=== PATIENT | male | born 1955 | race Caucasian/White ===

== ENCOUNTER 2019-10-12 17:44 | Inpatient (IN) | payer OTHER ==
[~2019-10-12] VITALS: Ht 182.9 cm; Wt 117.0 kg
--- NOTE | 2019-10-12 18:05 | NUR ---
PT TIFFANIEPA FROM HOME FOR NAUSEA AND VOMITTING, +DIARRHEA, S/P CATARACT SX 12/5 C/O R FOOT PAIN ALSO PS 5/10. PT AAOX4, NO ACUTE DISTRESS NOTED, -SOB. PT CONNECTED TO THE MONITOR AND POX.
[2019-10-12 19:16] LABS: BASOPHILS # (AUTO) 0.2 /CMM (0.0-0.2); BASOPHILS % (AUTO) 0.7 % (0.0-2.0); HEMATOCRIT 41 % (39-51); HEMOGLOBIN 12.7 g/dL (13.5-17.5); LYMPHOCYTES # (AUTO) 0.7 /CMM (0.8-4.8); MEAN CORPUSCULAR HGB CONC 31 g/dl (31.0-36.0); MEAN CORPUSCULAR VOLUME 94 fL (80-96); MONOCYTES # (AUTO) 1.1 /CMM (0.1-1.30); MONOCYTES % (AUTO) 4.4 % (2.0-12.0); NEUTROPHILS # (AUTO) 22.7 /CMM (1.8-8.9); NEUTROPHILS % (AUTO) 91.9 % (43.0-81.0); PLATELET COUNT (AUTO) 179 /CMM (150-450); RED BLOOD CELL COUNT(AUTO) 4.33 MIL/uL (4.5-6.0); WHITE BLOOD COUNT (AUTO) 24.7 K/uL (4.3-11.0)
[2019-10-12 19:31] LABS: ALBUMIN 2.4 g/dL (3.4-5.0); BILIRUBIN,DIRECT 0.1 mg/dL (0.0-0.2); BILIRUBIN,TOTAL 0.4 mg/dL (0.2-1.0); CALCIUM, SERUM 8.8 mg/dL (8.5-10.1); CREATININE 2.2 mg/dL (0.6-1.3); POTASSIUM 4.2 mmol/L (3.5-5.1); TOTAL PROTEIN, SERUM 6.6 g/dL (6.4-8.2)
[2019-10-12] MEDS ORDERED: INSULIN REGULAR, HUMAN 100 UNIT in IV NS 0.9% 99 ML IV PRN ×4 (20:00→22:00)
[2019-10-12] MEDS ORDERED: POTASSIUM CL. PREMIX PERIPHER. 0 ML ONE (20:25)
[2019-10-12] MEDS ORDERED: IV NS W/20MEQ KCL 1L IV ONE ×2 (20:30)
[2019-10-12 21:01] LABS: APPEARANCE,URINE Clear (CLEAR); BILIRUBIN,URINE Negative (NEGATIVE); BLOOD, URINE Moderate Ery/uL (NEGATIVE); COLOR,URINE Yellow (YELLOW); KETONES,URINE Trace (NEGATIVE); LEUKOCYTE ESTERASE ,URINE Negative (NEGATIVE); NITRITE, URINE Negative (NEGATIVE); PH,URINE 5.5 (5.0-8.0); PROTEIN,URINE >=300 mg/dl (NEGATIVE); UGLUCOSE >=1000 mg/dL (NEGATIVE); UROBILINOGEN,URINE 0.2 EU/dL (0.2)
--- NOTE | 2019-10-12 21:01 | NUR ---
EPIC BOOK REPAIRER PAGED
--- NOTE | 2019-10-12 21:02 | NUR ---
CALLED FOR ICU BED
--- NOTE | 2019-10-12 21:04 | NUR ---
RECIEVED BED 256
[2019-10-12 21:17] LABS: BACTERIA,URINE Rare /HPF (None Seen); SQUAMOUS EPITHELIAL CELL,UR Few /HPF (None Seen); WBC,URINE 0-2 /HPF (0-3)
--- NOTE | 2019-10-12 21:55 | NUR ---
REPORT FIVEN TO SATISH JANE
[2019-10-12] MEDS ORDERED: IV NS 0.9% 1,000 ML IV SCH (21:56)
[2019-10-12] MEDS ORDERED: MAGNESIUM HYDROXIDE 30 ML UDC PO PRN (22:00)
[2019-10-12] MEDS ORDERED: Z GUARD REMEDY 2 OZ OINT TP PRN (22:00)
[2019-10-12] MEDS ORDERED: ACETAMINOPHEN 325 MG TABLET PO PRN (22:00)
[2019-10-12] MEDS ORDERED: MAG HYDROX/AL HYDROX/SIMETH 30 ML UDC PO PRN (22:00)
[2019-10-12] MEDS: ONDANSETRON HCL/PF 4 MG/2 ML VIAL IVP PRN (22:23)
[2019-10-12] MEDS: ENOXAPARIN SODIUM 40 MG/0.4 ML DISP.SYRIN SQ SCH (22:33)
[2019-10-12] MEDS ORDERED: VANCOMYCIN 1 GM VIAL ONE ×2 (23:23→23:49)
[2019-10-12] MEDS: VANCOMYCIN 1 GM in IV NS 0.9% 250 ML IV SCH (23:43)
[2019-10-12] MEDS ORDERED: PIPERACILLIN /TAZOBACTAM 2.25 G VIAL IV ONE (23:49)
[2019-10-13] VITALS (27 sets, daily range): BP systolic 96–170; BP diastolic 30–95
[2019-10-13] MEDS ORDERED: PIPERACILLIN /TAZOBACTAM 2.25 G in IV D5W 50 ML IV ONE ×2
[2019-10-13] MEDS ORDERED: PIPERACILLIN /TAZOBACTAM 3.375 G in IV D5W 50 ML IV SCH ×2
[2019-10-13] MEDS: VANCOMYCIN 1 GM in IV NS 0.9% 250 ML IV SCH (00:54)
--- NOTE | 2019-10-13 02:27 | NUR ---
SALES PROJECT ENGINEER. ADMISSION. RECEIVED THE PT FROM ER VIA ALEAH,,PT AWAKE, ALERT, FOLLOW COMMANDS. INSULIN DRIP RUNNING. 10U.H IV RT HAND 20G. AIDA LOWER EXTREMITY SWOLLEN L HEEL WOUND,RICHY OXYGEN 2L VIA NASAL CANNULA. SAT 98%, NO ACUTE DISTRESS NOTED.TUBULAR STOCK GLASS BULB MACHINE FORMER SHOWING NSR, AREA ABDOMENAL FOLD MASD, SACRUM REDNESS.PICTURE TAKEN, WOUND CONSULTATION ORDERED RT EYE CATARACT SURGERY DONE. WILL CONTINUE TO MONITOR VITALS
--- NOTE | 2019-10-13 03:29 | NUR ---
LAB COORDINATOR. AM CARE, ORAL CARE, BED BATH GIVEN.LINEN CHANGED, REMAINING SAME OXYGEN TOLERATED WELL SAT 98%, COOK CANDY SHOWING NSR, IV RT UPPER ARM MIDLINE IVF NS 125ML/H, INSULIN DRIP RUNNING PER ACCU CHECK, HOB ELEVATED, WILL CONTINUE TO MONITOR VITALS
--- NOTE | 2019-10-13 03:32 | NUR ---
JEWELRY FINISHER. PT OWN MEDS SEND TO PHARMACY.
[2019-10-13] MEDS: HYDROCODONE/APAP 5/325MG 1 EACH TABLET PO PRN ×2 (03:43→20:18)
[2019-10-13 05:29] LABS: BASOPHILS # (AUTO) 0.1 /CMM (0.0-0.2); BASOPHILS % (AUTO) 0.4 % (0.0-2.0); EOSINOPHILS % (AUTO) 0.1 % (0.0-6.0); HEMATOCRIT 39 % (39-51); HEMOGLOBIN 12.3 g/dL (13.5-17.5); LYMPHOCYTES # (AUTO) 1.2 /CMM (0.8-4.8); LYMPHOCYTES % (AUTO) 4.9 % (20.0-44.0); MEAN CORPUSCULAR HGB CONC 32 g/dl (31.0-36.0); MEAN CORPUSCULAR VOLUME 93 fL (80-96); MONOCYTES # (AUTO) 1.7 /CMM (0.1-1.30); MONOCYTES % (AUTO) 6.8 % (2.0-12.0); NEUTROPHILS # (AUTO) 22.1 /CMM (1.8-8.9); NEUTROPHILS % (AUTO) 87.8 % (43.0-81.0); PLATELET COUNT (AUTO) 161 /CMM (150-450); RED BLOOD CELL COUNT(AUTO) 4.16 MIL/uL (4.5-6.0); WHITE BLOOD COUNT (AUTO) 25.2 K/uL (4.3-11.0)
[2019-10-13 05:34] LABS: CALCIUM, SERUM 8.9 mg/dL (8.5-10.1); CREATININE 2.2 mg/dL (0.6-1.3); POTASSIUM 3.5 mmol/L (3.5-5.1)
[2019-10-13 05:37] LABS: MAGNESIUM 1.4 mg/dL (1.8-2.4); PHOSPHORUS 2.5 mg/dL (2.5-4.9)
[2019-10-13 05:48] LABS: CALCIUM, SERUM 9.1 mg/dL (8.5-10.1); CREATININE 2.3 mg/dL (0.6-1.3)
[2019-10-13 05:53] LABS: MAGNESIUM 1.6 mg/dL (1.8-2.4); PHOSPHORUS 3.3 mg/dL (2.5-4.9)
--- NOTE | 2019-10-13 06:18 | NUR ---
LINE PATROLLER. BLOOD SUGAR IS 137 AT 0600. NOTIFIED CAIN SHAY. ORDER IS STOP INSULIN DRIP. ACCU CHECK Q2H.AND POTASSIUM 30MEQ IVP.
--- NOTE | 2019-10-13 06:47 | NUR ---
PARIMUTUEL CLERK. PT BLOOD SUGAR WAS 177. NOTIFIED CAIN SHAY SHE DOES NOT WANTS CHANGE NS TO D51/2NS
--- NOTE | 2019-10-13 07:26 | NUR ---
PHLEBOTOMY LAB ASSISTANT PT RT SUBCLAVIAN HD CATH NOTED, PER PT HAD DIALYSIS.
--- NOTE | 2019-10-13 07:28 | NUR ---
CONSULTING MARINE ENGINEER. 0000 BMP NOT RESULTED. CALLED THE LAB, THEY MISSED THE SPECIMEN UNTIL 0530 PT WAS ON INSULIN DRIP. BMP Q4H. CAIN MADE AWARE
[2019-10-13] MEDS: POTASSIUM CL. PREMIX PERIPHER. 50 ML IV SCH ×3 (07:30→08:30)
[2019-10-13] MEDS: PANTOPRAZOLE 40 MG TABLET.DR PO SCH (07:30)
--- NOTE | 2019-10-13 07:33 | NUR ---
PT OWN MEDICINE SEND TO PHARMACY.
[2019-10-13 08:05] LABS: CREATININE 2.2 mg/dL (0.6-1.3); MAGNESIUM 1.5 mg/dL (1.8-2.4); PHOSPHORUS 3.4 mg/dL (2.5-4.9); POTASSIUM 4.1 mmol/L (3.5-5.1)
[2019-10-13] MEDS: BLOOD SUGAR DIAGNOSTIC 1 EACH STRIP IN SCH ×6 (08:05→21:06)
[2019-10-13] MEDS: ONDANSETRON HCL/PF 4 MG/2 ML VIAL IVP PRN (08:58)
[2019-10-13] MEDS ORDERED: DEXTROSE 50%-WATER 50 ML DISP.SYRIN IV PRN (09:00)
--- NOTE | 2019-10-13 09:28 | NUR ---
received pt from electrical wiring lineman, a/o x4, SR, on 2L NC sat well, NPO, c/o nausea Zofran 4mg given, uses urinal, off of insulin drip, multiple wounds noted, v/s stable, no pain, pt turns and repositions by himself.
[2019-10-13] MEDS ORDERED: INSU100I26 SQ (09:52)
[2019-10-13] MEDS ORDERED: [UNRECOGNIZED DRUG - CODE] PO (09:52)
[2019-10-13] MEDS ORDERED: KETO5DRO83 OP (09:52)
[2019-10-13] MEDS ORDERED: MOXI3DRO10 OP (09:52)
[2019-10-13] MEDS ORDERED: SODI15OR PO (09:52)
[2019-10-13] MEDS ORDERED: PRED5DRO24 OP (09:52)
[2019-10-13] MEDS ORDERED: CALC667C6 PO (09:52)
[2019-10-13] MEDS: Potassium Chloride 20 MEQ in IV D5/0.45 NACL 1,000 ML IV PRN ×2 (10:02→23:21)
[2019-10-13] MEDS ORDERED: FEE PK DOSING 1 MIN EA MC ONE (10:41)
[2019-10-13] MEDS: NATURE THYROID PO SCH (11:30)
[2019-10-13] MEDS: prednisoLONE ACETATE 1% SUSP 5 ML BOTTLE OP SCH ×3 (12:00→20:58)
[2019-10-13] MEDS ORDERED: BLOOD SUGAR DIAGNOSTIC 1 EACH STRIP IN SCH (12:00)
[2019-10-13] MEDS: KETOROLAC OPTHALMIC OP SCH ×3 (12:00→20:58)
[2019-10-13] MEDS: MOXIFLOXACIN OP SCH ×3 (12:00→20:59)
[2019-10-13] MEDS ORDERED: CALCIUM ACETATE 667 MG TABLET PO SCH (12:00)
[2019-10-13] MEDS: INSULIN REGULAR, HUMAN 100 UNIT/ML 3 ML VIAL SQ PRN ×3 (12:10→21:18)
[2019-10-13] MEDS: Magnesium 1GM/D5W 100ML PREMIX 100 ML IV SCH ×2 (12:15→13:10)
[2019-10-13] MEDS: PIPERACILLIN /TAZOBACTAM 2.25 G in IV D5W 50 ML IV SCH ×3 (13:05→23:21)
[2019-10-13] MEDS ORDERED: METOCLOPRAMIDE HCL 10 MG/2 ML VIAL IV ONE (15:00)
--- NOTE | 2019-10-13 16:07 | NUR ---
pt is resting in the bed, a/o x4, SR, on 2L 02 sat well, pt has been having nausea and vomiting, Zofran did not help, Dr Gonzalez called, order for Reglan received, NPO, urinates in urinal, v/s stable, no pain, pt cleaned and changed.
[2019-10-13] MEDS: VANCOMYCIN 1 GM in IV D5W 250 ML IV SCH (17:18)
--- NOTE | 2019-10-13 19:00 | NUR ---
RECEIVED PATIENT AWAKE,ALERT,CONVERSES,COHERENT AND APPROPRIATE,DEMANDING.NOT IN ANY DISTRESS BUT DESATURATES INTO LOW 80'S ON ROOM AIR,PATIENT ON O2 VIA N/C 2 L/MIN., + COUGH. OFF INSULIN DRIP ,ON SQ INSULIN COVERAGE. STILL C/O ON AND OFF ABDOMINAL PAIN ,BUT DENIES ANY NAUSEA NOR VOMITING. NEEDS ATTENDED. STILL NPO BUT MAY HAVE ICE CHIPS.
[2019-10-13] MEDS: BASAGLAR 100 UNIT/ML SQ SCH (21:07)
[2019-10-13] MEDS: ENOXAPARIN SODIUM 40 MG/0.4 ML DISP.SYRIN SQ SCH (21:26)
[2019-10-13] MEDS: METOCLOPRAMIDE HCL 10 MG/2 ML VIAL IV PRN (21:31)
[2019-10-13] MEDS ORDERED: INSULIN GLARGINE, 100 UNIT/ML CARTRIDGE SQ SCH (22:00)
[2019-10-14] VITALS (15 sets, daily range): BP systolic 111–156; BP diastolic 53–85
--- NOTE | 2019-10-14 | NUR ---
REMAINS STABLE,NOT IN ANY DISTRESS, NO VOMITING, COMPLAINS BEING THIRSTY,ICE CHIPS OFFERED,STILL NPO.
[2019-10-14] MEDS: BLOOD SUGAR DIAGNOSTIC 1 EACH STRIP IN SCH ×6 (01:30→20:47)
[2019-10-14] MEDS: INSULIN REGULAR, HUMAN 100 UNIT/ML 3 ML VIAL SQ PRN ×5 (01:32→17:47)
--- NOTE | 2019-10-14 02:00 | NUR ---
ASLEEP,STABLE,NOT IN NAY DISTRESS.
--- NOTE | 2019-10-14 04:00 | NUR ---
REMAINS STABLE,NEEDS ATTENDED,DENIES ANY PAIN, NO NAUSEA/NO VOMITING AT THIS TIME.
--- NOTE | 2019-10-14 05:00 | NUR ---
AM BATH DONE,PERINEAL AND SACRAL AREA GROSSLY EXCORIATED .BILATERAL HEEL WOUND CARE DONE.
[2019-10-14] MEDS: METOCLOPRAMIDE HCL 10 MG/2 ML VIAL IV PRN ×2 (05:22→17:32)
[2019-10-14 05:31] LABS: CALCIUM, SERUM 8.6 mg/dL (8.5-10.1); CREATININE 2.2 mg/dL (0.6-1.3); MAGNESIUM 1.9 mg/dL (1.8-2.4); POTASSIUM 4.1 mmol/L (3.5-5.1)
[2019-10-14] MEDS: PIPERACILLIN /TAZOBACTAM 2.25 G in IV D5W 50 ML IV SCH ×4 (06:22→23:05)
--- NOTE | 2019-10-14 07:00 | NUR ---
STABLE,AWAKE,ALERT.STILL NPO,STILL WITH ON AND OFF NAUSEA RELIEVED BY REGLAN IV.REPORT GIVEN TO CARLITO RN.
[2019-10-14] MEDS: HYDROCODONE/APAP 5/325MG 1 EACH TABLET PO PRN ×2 (07:13→11:23)
--- NOTE | 2019-10-14 07:30 | NUR ---
RN NOTES RECEIVED PATIENT ASLEEP BUT EASILY AWAKEN BY VERBAL STIMULI,ALERT, ORIENTED X4, ,CONVERSES APPROPRIATELY.WITH COMPLAINTS OF PAIN 10/10. DENIES ANY SHORTNESS OF BREATH BUT DESATURATES INTO LOW 80'S ON ROOM AIR, WILL TRY TO CHANGE OXIMETRY WELL. PATIENT SINUS RHYTHM ON THE MONITOR WITH HR ON THE 80SL. PATIENT ON O2 VIA N/C 2 L/MIN AT THIS TIME, TITRATED TO 3 TEMPORARILY. IV SITE ON THE R HAND G [address] AND UPPER ARM MIDLINE IN PLACE, WITH ONGOING D5NS WITH 20 MEQ OF POTASSIUM RUNNING AY 100CC/HR. PATIENT ENCOURAGE TO CALL FOR HELP AND ASSISTANCE, TO VERBALIZE FEELINGS AND CONCERNS. CALL LIGHT WITHIN REACH. HOB ELEVATED. SAFETY MEASURES IN PLACE, WILL CONTINUE TO MONITOR PATIENT AND ATTEND NEEDS
--- NOTE | 2019-10-14 08:00 | NUR ---
RN NOTES SEEN AND EXAMINED BY DR. KIMBALL. UPDATED WITH CURRENT STATUS. ALSO INFORMED MD, ABOUT PATIENTS REQUEST IF HE CAN HAVE HIS IV CATH REMOVED.
[2019-10-14] MEDS: prednisoLONE ACETATE 1% SUSP 5 ML BOTTLE OP SCH ×4 (08:46→21:08)
[2019-10-14] MEDS: NATURE THYROID PO SCH (08:46)
[2019-10-14] MEDS: KETOROLAC OPTHALMIC OP SCH ×4 (08:46→21:08)
[2019-10-14] MEDS: MOXIFLOXACIN OP SCH ×4 (08:46→21:08)
[2019-10-14] MEDS: PANTOPRAZOLE 40 MG TABLET.DR PO SCH (08:51)
--- NOTE | 2019-10-14 10:50 | NUR ---
RN NOTES PATIENT TRANSFERRED TO ROOM 312-1. REPORT GIVEN TO SATISH ALBRIGHT
--- NOTE | 2019-10-14 10:59 | NUR ---
Received patient from ICU nurse, Daly. Patient is alert and oriented x4, able to make needs known. Not in any form of distress. No sob, on 3lpm o2 via NC. Denied pain or discomfort at this time iv access intact and patent. right cw HD access noted with c/d/i dressing. Kept patient safe and comfortable. bed in low/locked posiiton, siderails upx2, call light in reach. jamal continue to monitor accordingly.
[2019-10-14] MEDS: VANCOMYCIN 1 GM in IV D5W 250 ML IV SCH (12:07)
[2019-10-14] MEDS: SODIUM BICARBONATE 650 MG TABLET PO SCH (14:54)
--- NOTE | 2019-10-14 19:34 | NUR ---
RN CLOSING NOTES PATIENT IN STABLE CONDITION. NO SIGNFICANT CHANGE OF CONDITION DURING THE SHIFT. ALL NEEDS ATTENDED AND PROVIDED. ALL DUE MEDICATIONS GIVEN ORDERED. KEPT PATIENT SAFE AND COMFORTABLE. BED IN LOWEST LOCKED POSITION. SIDERAILS UPX2, CALL LIGHT IN REACH. ENDORSED TO NIGHT RN FOR RUIZ.
[2019-10-14] MEDS: HYDROCODONE/APAP 10/325MG 1 EA TABLET PO PRN (19:56)
[2019-10-14] MEDS: BASAGLAR 100 UNIT/ML SQ SCH (21:00)
[2019-10-14] MEDS: ENOXAPARIN SODIUM 40 MG/0.4 ML DISP.SYRIN SQ SCH (21:05)
[2019-10-15] MEDS: BLOOD SUGAR DIAGNOSTIC 1 EACH STRIP IN SCH ×6 (00:07→21:32)
[2019-10-15] MEDS: INSULIN REGULAR, HUMAN 100 UNIT/ML 3 ML VIAL SQ PRN ×6 (00:14→21:38)
[2019-10-15] MEDS: METOCLOPRAMIDE HCL 10 MG/2 ML VIAL IV PRN ×2 (00:17→14:50)
[2019-10-15] MEDS: HYDROCODONE/APAP 5/325MG 1 EACH TABLET PO PRN ×3 (02:04→14:42)
[2019-10-15] MEDS: PIPERACILLIN /TAZOBACTAM 2.25 G in IV D5W 50 ML IV SCH ×4 (05:03→23:30)
[2019-10-15] MEDS: VANCOMYCIN 1 GM in IV D5W 250 ML IV SCH (05:44)
--- NOTE | 2019-10-15 07:01 | NUR ---
RN CLOSING NOTES PATIENT ASLEEP, AROUSES EASILY, NO ACUTE DISTRESS NOTED. NO SIGNFICANT CHANGE OF CONDITION DURING THE SHIFT. REPOSITIONED FOR COMFORT. ALL NEEDS ATTENDED AND PROVIDED. ALL DUE MEDICATIONS GIVEN ORDERED. SAFETY PRECAUTIONS IN PLACE. BED IN LOWEST LOCKED POSITION. SIDERAILS UPX2, CALL LIGHT WITHIN EASY REACH.
[2019-10-15 07:52] LABS: BASOPHILS # (AUTO) 0.1 /CMM (0.0-0.2); BASOPHILS % (AUTO) 1.1 % (0.0-2.0); EOSINOPHILS % (AUTO) 2.8 % (0.0-6.0); HEMATOCRIT 37 % (39-51); HEMOGLOBIN 11.4 g/dL (13.5-17.5); LYMPHOCYTES # (AUTO) 1.3 /CMM (0.8-4.8); LYMPHOCYTES % (AUTO) 11.9 % (20.0-44.0); MEAN CORPUSCULAR HGB CONC 31 g/dl (31.0-36.0); MEAN CORPUSCULAR VOLUME 94 fL (80-96); MONOCYTES # (AUTO) 0.9 /CMM (0.1-1.30); MONOCYTES % (AUTO) 8.5 % (2.0-12.0); NEUTROPHILS # (AUTO) 8.2 /CMM (1.8-8.9); NEUTROPHILS % (AUTO) 75.7 % (43.0-81.0); PLATELET COUNT (AUTO) 145 /CMM (150-450); RED BLOOD CELL COUNT(AUTO) 3.92 MIL/uL (4.5-6.0); WHITE BLOOD COUNT (AUTO) 10.9 K/uL (4.3-11.0)
[2019-10-15 08:00] VITALS: BP 130/67
[2019-10-15 08:21] LABS: CALCIUM, SERUM 8.6 mg/dL (8.5-10.1); CREATININE 2.2 mg/dL (0.6-1.3); POTASSIUM 4.1 mmol/L (3.5-5.1)
--- NOTE | 2019-10-15 08:34 | NUR ---
WOUND CARE CONSULT: PT PRESENTS WITH RASH TO ABDOMINAL AND GROIN FOLDS, BUTTOCKS AND PERINEUM WITH MOISTURE ASSOCIATED SKIN IRRITATION TO GLUTEAL CREASE WELL BILATERAL HEEL ULCERS, PRESENT ON ADMISSION. PT STATES IS FOLLOWED BY DR ALONSO FOR HEELS. DPM CONSULT REQUESTED AND DR ALONSO NOTIFIED. PT IS INDEPENDENT WITH BED MOBILITY AND CONTINENT AT THIS TIME. RECOMMENDATIONS MADE FOR SKIN PROTECTION AND WOUND CARE TIL SEEN BY DPM. WILL SEE PRN. CURRENT CORAL SCORE IS 18. MD IN AGREEMENT WITH PLAN OF CARE. Addendum: 10/15/19 at 0837 by HEATHER COOK WNDNU Amended: Links added. Addendum: 10/15/19 at 0840 by HEATHER COOK WNDNU SHADY ISOFLEX LOW AIRLOSS BED TO BE PLACED WHEN AVAILABLE.
[2019-10-15] MEDS: KETOROLAC OPTHALMIC OP SCH ×4 (10:12→21:28)
[2019-10-15] MEDS: prednisoLONE ACETATE 1% SUSP 5 ML BOTTLE OP SCH ×4 (10:13→21:32)
[2019-10-15] MEDS: MOXIFLOXACIN OP SCH ×4 (10:13→21:33)
[2019-10-15] MEDS: NATURE THYROID PO SCH (10:13)
[2019-10-15] MEDS: SODIUM BICARBONATE 650 MG TABLET PO SCH ×2 (10:14→18:29)
[2019-10-15] MEDS: CLOTRIMAZOLE 1% 15 GM TUBE TP SCH ×2 (10:14→18:24)
[2019-10-15] MEDS: PANTOPRAZOLE 40 MG TABLET.DR PO SCH (10:19)
--- NOTE | 2019-10-15 10:19 | NUR ---
RN NOTES ADMINISTERED NARCO 5/325 MG PO L;RN FOR BILATERAL LOWER EXTREMITIES PER PATIENT REQUEST, V/S TAKEN BP -130/67, P-75. CONTINUED MONITORING.
--- NOTE | 2019-10-15 13:55 | NUR ---
RN NOTES ADMINISTERED ATIVAN 0.5 MG PO X1 BECAUSE OF PATIENT CLAUSTROPHOBIC, GOING TO GET MRA PER MD ORDER. CONTINUED MONITORING. V/S TAKEN BP 130/82, P-67.
[2019-10-15] MEDS ORDERED: LORAZEPAM 0.5 MG TABLET PO ONE (14:00)
--- NOTE | 2019-10-15 14:42 | NUR ---
RN NOTES ADMINISTERED NARCO 5/325 MG PO PRN FOR BLE PAIN 06/16 PER PATIENT REQUEST V/S TAKEN BP- 130/80, P-68, CONTINUED MONITORING.
--- NOTE | 2019-10-15 14:50 | NUR ---
RN NOTES ADMINISTERED REGLAN 10 MG/ML IV PUSH FOR NAUSEA.
--- NOTE | 2019-10-15 15:27 | NUR ---
RN NOTES MEDICATION WERE ADMINISTERED FOR NAUSEA , AND PAIN EFFECTIVE. PATIENT BOW STRING MAKER MRI AT THIS TIME.
[2019-10-15 16:00] VITALS: BP 134/74
--- NOTE | 2019-10-15 18:00 | NUR ---
RN NOTES BS-146 MG/DL, COVERAGE GIVEN, PATIENT TOLERATED DINNER WELL, ALSO ADMINISTERED SCHEDULED MEDICATION, V/S WNL. INFUSING ZOSYN 100 ML/HR ON RIGHT HAND INTACT, PATIENT REFUSED PAIN AT THIS TIME. CALL LIGHT WITHIN TO REACH, CALL LIGHT WITHIN TO REACH. ENDORSED ONCOMING NURSE FOLLOW PLAN OF CARE.
--- NOTE | 2019-10-15 19:45 | NUR ---
MS RN OPENING NOTES RECEIVED PATIENT FROM MORNING SHIFT, ALERT AND ORIENTED X 3. VERBALLY RESPONSIVE AND ABLE TO FOLLOW DIRECTIONS. BREATHING REGULAR AND UNLABORED ON ROOM AIR. RIGHT CHEST HD SITE INTACT WITH CLEAN AND DRY DRESSING. RIGHT UPPER ARM MIDLINE INTACT AND PATENT INFUSING WELL WITH NO BLEEDING OR S/S OF INFECTION NOTED. BODY ASSESSMENT DONE, BLE WOUNDS CLEAN AND WRAPPED WITH KERLIX DRESSING. NO COMPLAINTS OF PAIN/DISCOMFORT REPORTED OF NOW. BED LOW AND LOCKED ON SEMI FOWLERS POSITION. CALL LIGHT IN REACH. WILL CONTINUE TO MONITOR.
[2019-10-15 20:00] VITALS: BP 124/65
[2019-10-15] MEDS ORDERED: LORAZEPAM 0.5 MG TABLET PO PRN (20:00)
[2019-10-15] MEDS: BASAGLAR 100 UNIT/ML SQ SCH (21:37)
[2019-10-15] MEDS: ENOXAPARIN SODIUM 40 MG/0.4 ML DISP.SYRIN SQ SCH (21:41)
--- NOTE | 2019-10-15 21:45 | NUR ---
MS RN NOTES BS 139mg/dl, 2UNITS REGULAR INSULIN GIVEN SQ. APPLE JUICE PROVIDED ON BEDSIDE. WILL CONTINUE TO MONITOR FOR S/S OF HYPO/HYPERGLYCEMIA.
--- NOTE | 2019-10-16 00:50 | NUR ---
MS RN NOTES BS 114mg/dl, NO INSULIN COVERAGE NEEDED. WILL CONTINUE TO MONITOR FOR S/S OF HYPO/HYPERGLYCEMIA.
[2019-10-16] MEDS: BLOOD SUGAR DIAGNOSTIC 1 EACH STRIP IN SCH ×6 (00:51→21:39)
[2019-10-16] MEDS: HYDROCODONE/APAP 5/325MG 1 EACH TABLET PO PRN (02:09)
[2019-10-16] MEDS: METOCLOPRAMIDE HCL 10 MG/2 ML VIAL IV PRN (02:13)
--- NOTE | 2019-10-16 02:25 | NUR ---
MS RN NOTES COMPLAINED OF 7/10 BILATERAL LOWER EXTREMITIES PAIN AND NAUSEA, NORCO 5/325 GIVEN BY MOUTH. REGLAN 10MG GIVEN IV PUSH. NON-PHARMACOLOGICAL INTERVENTIONS DONE. VITAL SIGNS WNL. WILL CONTINUE TO MONITOR.
--- NOTE | 2019-10-16 05:00 | NUR ---
MS RN NOTES BS 115mg/dl, NO INSULIN COVERAGE NEEDED. WILL CONTINUE TO MONITOR FOR S/S OF HYPO/HYPERGLYCEMIA.
[2019-10-16] MEDS: PIPERACILLIN /TAZOBACTAM 2.25 G in IV D5W 50 ML IV SCH ×3 (05:08→18:13)
[2019-10-16] MEDS: INSULIN REGULAR, HUMAN 100 UNIT/ML 3 ML VIAL SQ PRN ×3 (05:09→21:39)
[2019-10-16 06:12] LABS: BASOPHILS % (AUTO) 0.5 % (0.0-2.0); EOSINOPHILS % (AUTO) 3.3 % (0.0-6.0); HEMATOCRIT 35 % (39-51); HEMOGLOBIN 11.2 g/dL (13.5-17.5); LYMPHOCYTES # (AUTO) 1.4 /CMM (0.8-4.8); LYMPHOCYTES % (AUTO) 14.6 % (20.0-44.0); MEAN CORPUSCULAR HGB CONC 32 g/dl (31.0-36.0); MEAN CORPUSCULAR VOLUME 93 fL (80-96); MONOCYTES # (AUTO) 0.9 /CMM (0.1-1.30); NEUTROPHILS # (AUTO) 6.7 /CMM (1.8-8.9); NEUTROPHILS % (AUTO) 71.6 % (43.0-81.0); PLATELET COUNT (AUTO) 149 /CMM (150-450); RED BLOOD CELL COUNT(AUTO) 3.77 MIL/uL (4.5-6.0); WHITE BLOOD COUNT (AUTO) 9.3 K/uL (4.3-11.0)
--- NOTE | 2019-10-16 06:15 | NUR ---
MS RN CLOSING NOTES PATIENT IN BED, ALERT AND ORIENTED X 3. VERBALLY RESPONSIVE WITH NO S/S OF DISTRESS OBSERVED. RIGHT CHEST HD SITE INTACT WITH CLEAN AND DRY DRESSING. RIGHT UPPER ARM MIDLINE AND RIGHT HAND IV LINE INTACT AND FLUSHING WELL WITH NO BLEEDING OR S/S OF INFECTION NOTED. WOUND TREATMENTS PROVIDED. NO COMPLAINTS OF PAIN/DISCOMFORT REPORTED OF NOW. BED LOW AND LOCKED ON SEMI FOWLERS POSITION. CALL LIGHT IN REACH. WILL ENDORSE TO MORNING SHIFT FOR RUIZ.
[2019-10-16 06:29] LABS: CALCIUM, SERUM 8.5 mg/dL (8.5-10.1); CREATININE 1.9 mg/dL (0.6-1.3); POTASSIUM 4.1 mmol/L (3.5-5.1)
--- NOTE | 2019-10-16 07:00 | NUR ---
MS/RN NOTE THE PATIENT IS RECEIVED UP IN CHAIR. ALERT AND ORIENTED X4. DENIES PAIN AT THIS TIME. IN ROOM AIR AND DENIES SOB. RESPIRATION REGULAR AND UNLABORED. PATIENT IN O APPARENT DISTRESS. RIGHT HAND G 18 AND EDI MIDLINE PATENT AND SALINE LOCKED. RIGHT CHEST HD CATH PRESENT. CALL LIGHT WITHIN REACH. WILL CONTINUE TO MONITOR.
[2019-10-16 08:00] VITALS: BP 133/67
[2019-10-16] MEDS: SODIUM BICARBONATE 650 MG TABLET PO SCH ×2 (08:32→17:57)
[2019-10-16] MEDS: PANTOPRAZOLE 40 MG TABLET.DR PO SCH (08:37)
[2019-10-16] MEDS: NATURE THYROID PO SCH (08:38)
[2019-10-16] MEDS: CLOTRIMAZOLE 1% 15 GM TUBE TP SCH ×3 (08:45→19:05)
[2019-10-16] MEDS: AMMONIUM LACTATE 227 GM BOTTLE TP SCH (08:46)
[2019-10-16] MEDS: MOXIFLOXACIN OP SCH ×4 (08:46→21:40)
[2019-10-16] MEDS: KETOROLAC OPTHALMIC OP SCH ×4 (08:48→21:41)
[2019-10-16] MEDS: prednisoLONE ACETATE 1% SUSP 5 ML BOTTLE OP SCH ×4 (08:48→21:40)
--- NOTE | 2019-10-16 12:09 | NUR ---
MS/RN NOTE BLOOD SUGAR IS 175. INSULIN ADMINISTRATION IS Q6HR PER SLIDING SCALE. NOT DUE FOR SLIDING SCLARE INSULIN ADMINISTRATION AT THIS TIME.
[2019-10-16] MEDS: CADEXOMER IODINE 40 GM TUBE TP SCH (12:12)
--- NOTE | 2019-10-16 12:13 | NUR ---
MS/RN NOTE IODOSORB IS ADMINISTERED LATE DUE TO PHARMACY LATE DELIVERY DESPITE FOLLOW UP CALLS.
[2019-10-16] MEDS: HYDROCODONE/APAP 10/325MG 1 EA TABLET PO PRN ×2 (15:47→22:50)
[2019-10-16 16:00] VITALS: BP 129/64
--- NOTE | 2019-10-16 17:32 | NUR ---
MS/RN NOTE RECEIVED NEW ORDER FROM DR RANDHAWA TO PUT CONSULT FOR FOR GOLDEN FOR HD CATH REMOVAL FROM RIGHT UPPER CHEST. THE ORDER IS READ BACK, VERIFIED. NOTED AND CARRIED OUT.
[2019-10-16] MEDS ORDERED: VANCOMYCIN 1 GM in IV D5W 250 ML IV SCH (18:00)
--- NOTE | 2019-10-16 19:30 | NUR ---
RN OPEN NOTES RECEIVED PATIENT AWAKE IN CHAIR. A/O X4. NO SIGNS OF DISTRESS OR DISCOMFORT. BREATHING EVEN AND UNLABORED. HAS EDI MIDLINE, PATENT AND INTACT, NO SIGNS OF REDNESS OR INFILTRATION. HAS RCW HD CATH INTACT, BED UIN LOW LOCKED POSITION WITH SIDE RAILS X2. CALL LIGHT WITHIN REACH. WILL CONTINUE TO MONITOR.
--- NOTE | 2019-10-16 19:56 | NUR ---
MS/RN NOTE THE PATIENT ALERT AND ORIENTED X4. DENIES PAIN. RESPIRATION REGULAR AND UNLABORED. PATIENT IS IN ROOM AIR AND SATURATION IS AT 98%. DENIES SOB. THE PATIENT IN NO APPARENT DISTRESS. RIGHT UPPER ARM MIDLINE PATENT AND SALINE LOCKED. RIGHT UPPER CHEST HD CATH PRESENT. BED LOW AND LOCKED. SIDE RAILS UP X2. CALL LIGHT WITHIN REACH. METALSMITH HELPER IS ENDORSED TO ADMINISTER VACO DUE AT 1800. VANCO WAS NOT HAND AT 1800 DUE TO PATIENT NOT WANTING TO GET CONNECTED.
[2019-10-16 20:00] VITALS: BP 124/73
[2019-10-16] MEDS: CEFEPIME 1 GM in IV D5W 50 ML IV SCH (21:39)
[2019-10-16] MEDS: ENOXAPARIN SODIUM 40 MG/0.4 ML DISP.SYRIN SQ SCH (22:00)
[2019-10-16] MEDS: BASAGLAR 100 UNIT/ML SQ SCH (22:00)
--- NOTE | 2019-10-16 22:50 | NUR ---
RN NOTES ADMINISTERED NORCO 10/325 ORDERED AT PATIENT REQUEST FOR AIDA FEET PAIN 06/16. VSS. WILL CONTINUE TO MONITOR.
[2019-10-17] MEDS: BLOOD SUGAR DIAGNOSTIC 1 EACH STRIP IN SCH ×6 (01:57→21:17)
[2019-10-17] MEDS: INSULIN REGULAR, HUMAN 100 UNIT/ML 3 ML VIAL SQ PRN ×4 (01:59→21:19)
[2019-10-17 06:33] LABS: BASOPHILS # (AUTO) 0.1 /CMM (0.0-0.2); BASOPHILS % (AUTO) 0.5 % (0.0-2.0); EOSINOPHILS % (AUTO) 3.9 % (0.0-6.0); HEMATOCRIT 37 % (39-51); HEMOGLOBIN 11.7 g/dL (13.5-17.5); LYMPHOCYTES # (AUTO) 1.8 /CMM (0.8-4.8); LYMPHOCYTES % (AUTO) 17.3 % (20.0-44.0); MEAN CORPUSCULAR HGB CONC 32 g/dl (31.0-36.0); MEAN CORPUSCULAR VOLUME 93 fL (80-96); MONOCYTES # (AUTO) 1.2 /CMM (0.1-1.30); MONOCYTES % (AUTO) 11.8 % (2.0-12.0); NEUTROPHILS # (AUTO) 6.9 /CMM (1.8-8.9); NEUTROPHILS % (AUTO) 66.5 % (43.0-81.0); PLATELET COUNT (AUTO) 158 /CMM (150-450); RED BLOOD CELL COUNT(AUTO) 3.94 MIL/uL (4.5-6.0); WHITE BLOOD COUNT (AUTO) 10.3 K/uL (4.3-11.0)
[2019-10-17 06:44] LABS: CALCIUM, SERUM 8.2 mg/dL (8.5-10.1); CREATININE 1.8 mg/dL (0.6-1.3); MAGNESIUM 1.9 mg/dL (1.8-2.4); PHOSPHORUS 3.4 mg/dL (2.5-4.9); POTASSIUM 4.5 mmol/L (3.5-5.1)
[2019-10-17] MEDS: PANTOPRAZOLE 40 MG TABLET.DR PO SCH (07:30)
--- NOTE | 2019-10-17 07:34 | NUR ---
RN CLOSING NOTES PATIENT AWAKE IN BED. A/O X4. NO SIGNS OF DISTRESS OR DISCOMFORT. BREATHING EVEN AND UNLABORED. HAS EDI MIDLINE, PATENT AND INTACT, NO SIGNS OF REDNESS OR INFILTRATION. HAS RCW HD CATH INTACT. ALL NEEDS MET. NO SIGNIFICANT CHANGES THROUGH THE NIGHT. BED IN LOW LOCKED POSITION WITH SIDE RAILS X2. CALL LIGHT WITHIN REACH. ENDORSED TO AM SHIFT FOR RUIZ.
[2019-10-17] MEDS: HYDROCODONE/APAP 10/325MG 1 EA TABLET PO PRN ×2 (08:40→18:34)
[2019-10-17] MEDS: SODIUM BICARBONATE 650 MG TABLET PO SCH ×2 (08:58→18:49)
[2019-10-17] MEDS: AMMONIUM LACTATE 227 GM BOTTLE TP SCH (08:59)
[2019-10-17] MEDS: CLOTRIMAZOLE 1% 15 GM TUBE TP SCH ×3 (09:00→19:04)
[2019-10-17] MEDS: CEFEPIME 1 GM in IV D5W 50 ML IV SCH ×2 (09:36→19:26)
[2019-10-17] MEDS: prednisoLONE ACETATE 1% SUSP 5 ML BOTTLE OP SCH ×4 (09:37→21:29)
[2019-10-17] MEDS: KETOROLAC OPTHALMIC OP SCH ×4 (09:37→21:31)
[2019-10-17] MEDS: MOXIFLOXACIN OP SCH ×4 (09:37→21:30)
[2019-10-17] MEDS: CADEXOMER IODINE 40 GM TUBE TP SCH ×2 (10:01→19:03)
[2019-10-17] MEDS: NATURE THYROID PO SCH (12:31)
[2019-10-17] MEDS ORDERED: LIDOCAINE 1%-EPI 1:100,000 20 ML VIAL TP ONE (13:30)
--- NOTE | 2019-10-17 18:00 | NUR ---
REFUSED DC PHOTOS.
--- NOTE | 2019-10-17 18:30 | NUR ---
IN AM NPO FOR DEBRIDEMENT,THEN SURGERY CANCELLED DUE TO INSURANCE,CASE MGMT. ARRANGED FOR DISCHARGE.PT. TO GO TO [facility] FOR DEBRIDEMENT OUT PT.[facility]AL PT. TO GET 6 WEEKS OF HOME IV ANTIBIOTICS.HAS RT. UPPER ARM MIDLINE FOR MED. HOME CAREGIVER INFORMED OF THIS BY CASE MGMT.WD CARE DONE BY HOME RN WITH ANTIBIOTIC INFUSION.
--- NOTE | 2019-10-17 19:00 | NUR ---
RN reji opening notes Received Pt from morning nurse. Pt is alert and orientedX4. Pt is sitting in a chair eating his dinner. Respiration is normal. No SOB. No Nausea or vomiting. Pt denies any pain or discomfort at this time. EDI midline is clean, intact, patent and SL. Pt's is going to D/C tonight. Safety precautions is maintained. Instructed to call. Bed at low position, brakes locked, side rails upX2 and call light is within reach. Will continue to monitor.
--- NOTE | 2019-10-17 19:30 | NUR ---
RN medsurg notes Pt is going D/C tonight at 2100. Administered maxipime 1gm earlier as ordered. Informed and contacted Dr. Chaudhari about maxipime. Charge nurse SATISH Khan is aware and informed. said it's okay to give.
--- NOTE | 2019-10-17 19:31 | NUR ---
RN medsurg notes Returned Pt's home meds in a plastic bag to Pt and Pt's gurwinder Langley in the room.
[2019-10-17 20:00] VITALS: BP 140/65
--- NOTE | 2019-10-17 20:00 | NUR ---
SATISH mcdermott notes Pt D/C paper works signed by Pt and D/C explained to Pt. Pt verbalize understanding. Pt's belongings signed by Pt. Pt meds gave to Pt and Pt's gurwinder Langley. Pt has to F/U with and to f/u with phyllis vascular associate on 10/24/19. Pt's verbalize understanding. VS is stable.
--- NOTE | 2019-10-17 22:05 | NUR ---
SATISH so D/C notes Pt is alert and orientedX4. Respiration is normal. No SOB. No S/S of distress noted. Pt's able to ambulate in the room without SOB. VS is stable. Routine meds were given as ordered. D/C instruction is signed and given to Pt and Pt's niece Korin. Pt's niece will take Pt to home. Pt's belongings was done, signed and given to Pt. LITTLE Candelario take Pt to the hospital's lobby.
== END 2019-10-17 22:39 | disposition home or self-care (01) | DRG 720 ==
LOC: ER 17:48 → ICU 21:16 → MED 10-14 10:38
PROVIDERS: ADMIT Registered Nurse; ATTEND Student in an Organized Health Care Education/Training Program
PROC: 05HB33Z Insertion of Infusion Device into Right Basilic Vein, Percutaneous Approach (ICD-10-PCS; principal; 2019-10-13)
DX: A41.01 Sepsis due to Methicillin susceptible Staphylococcus aureus (principal); I13.2 Hypertensive heart and chronic kidney disease with heart failure and with stage 5 chronic kidney disease, or end stage renal disease; E11.10 Type 2 diabetes mellitus with ketoacidosis without coma; N17.9 Acute kidney failure, unspecified; R53.2 Functional quadriplegia; E11.22 Type 2 diabetes mellitus with diabetic chronic kidney disease; E66.01 Morbid (severe) obesity due to excess calories; M84.476A Pathological fracture, unspecified foot, initial encounter for fracture; E87.1 Hypo-osmolality and hyponatremia; B35.1 Tinea unguium; B35.3 Tinea pedis; N18.6 End stage renal disease; L03.115 Cellulitis of right lower limb; L03.116 Cellulitis of left lower limb; D63.1 Anemia in chronic kidney disease; I50.9 Heart failure, unspecified; E11.51 Type 2 diabetes mellitus with diabetic peripheral angiopathy without gangrene; Z68.35 Body mass index [BMI] 35.0-35.9, adult; M89.8X9 Other specified disorders of bone, unspecified site; E11.621 Type 2 diabetes mellitus with foot ulcer; L97.529 Non-pressure chronic ulcer of other part of left foot with unspecified severity; L97.519 Non-pressure chronic ulcer of other part of right foot with unspecified severity; E11.69 Type 2 diabetes mellitus with other specified complication; E11.42 Type 2 diabetes mellitus with diabetic polyneuropathy; M86.9 Osteomyelitis, unspecified; A40.9 Streptococcal sepsis, unspecified; B96.89 Other specified bacterial agents as the cause of diseases classified elsewhere
CPT/HCPCS: 36415; 71045-TC; 73620-TC; 73721-TC; 80048-TC; 80061-TC; 80076-TC; 80202-TC; 81000-TC; 82962-TC; 83605-TC; 83690-TC; 83735-TC; 84100-TC; 85025-TC; 85610-TC; 85730-TC; 87040-TC; 87070-TC; 87081-TC; 87086-TC; 87186-TC; 93970-TC; 94799-TC; 97116-TC; 97530-TC; A6253; A6403; C1751; G0378; J0692; J1650; J1815; J2405; J2543; J2765; J3370; J3475; J3480; J3490; J7030; J7050; J7060

== ENCOUNTER 2020-03-23 02:15 | Inpatient (IN) | payer OTHER ==
[~2020-03-23] VITALS: Ht 182.9 cm; Wt 136.5 kg
[~2020-03-23 02:15] MED LIST: CALC667C6 PO; INSU100I26 SQ; KETO5DRO83 OP; PRED5DRO24 OP; SODI15OR PO; [UNRECOGNIZED DRUG - CODE] PO
--- NOTE | 2020-03-23 02:24 | NUR ---
PATIENT CAME TO ER BED 12 C/O TESTICULAR PAIN. PATIENT'S TESTICLES ARE ENGLARGED. PATIENT STATES THAT HE GAINED A LOT OF WATER WEIGHT. PATIENT IS AAOX4. NO SOB. BREATHING EVENLY AND UNLABORED ON ROOM AIR. CONNECTED TO MONITOR.
[2020-03-23] MEDS ORDERED: [UNRECOGNIZED DRUG - CODE] PO (02:28)
[2020-03-23] MEDS ORDERED: FURO-144 PO (02:28)
[2020-03-23] MEDS ORDERED: ASPI-1152 PO (02:28)
[2020-03-23] MEDS ORDERED: HYDR-4075 PO (02:28)
[2020-03-23] MEDS ORDERED: CARV6.252 PO (02:28)
[2020-03-23] MEDS ORDERED: FERR325T23 PO (02:28)
[2020-03-23 02:48] LABS: BASOPHILS # (AUTO) 0.1 /CMM (0.0-0.2); BASOPHILS % (AUTO) 0.9 % (0.0-2.0); EOSINOPHILS % (AUTO) 4.6 % (0.0-6.0); HEMATOCRIT 33 % (39-51); HEMOGLOBIN 10.5 g/dL (13.5-17.5); LYMPHOCYTES # (AUTO) 1.6 /CMM (0.8-4.8); LYMPHOCYTES % (AUTO) 11.7 % (20.0-44.0); MEAN CORPUSCULAR HGB CONC 32 g/dl (31.0-36.0); MEAN CORPUSCULAR VOLUME 88 fL (80-96); MONOCYTES # (AUTO) 1.5 /CMM (0.1-1.30); MONOCYTES % (AUTO) 11.1 % (2.0-12.0); NEUTROPHILS # (AUTO) 9.7 /CMM (1.8-8.9); NEUTROPHILS % (AUTO) 71.7 % (43.0-81.0); PLATELET COUNT (AUTO) 208 /CMM (150-450); RED BLOOD CELL COUNT(AUTO) 3.78 MIL/uL (4.5-6.0); WHITE BLOOD COUNT (AUTO) 13.6 K/uL (4.3-11.0)
--- NOTE | 2020-03-23 02:52 | NUR ---
US AT BEDSIDE.
--- NOTE | 2020-03-23 03:00 | NUR ---
US FINISHED WITH PROCEDURE
[2020-03-23 03:08] LABS: CALCIUM, SERUM 7.8 mg/dL (8.5-10.1); CREATININE 2.8 mg/dL (0.6-1.3); POTASSIUM 5.1 mmol/L (3.5-5.1)
[2020-03-23] MEDS ORDERED: LIDOCAINE 2% JEL UROJET 10 ML MM ONE ×2 (03:23→04:30)
[2020-03-23] MEDS ORDERED: FUROSEMIDE 40 MG/4 ML VIAL ONE (04:33)
[2020-03-23] MEDS ORDERED: MORPHINE SULFATE INJ 2 MG/ML DISP.SYRIN ONE (04:46)
[2020-03-23] MEDS ORDERED: MORPHINE SULFATE INJ 4 MG/ML DISP.SYRIN ONE (04:47)
[2020-03-23] MEDS ORDERED: FUROSEMIDE 40 MG/4 ML VIAL IV ONE (05:00)
[2020-03-23] MEDS ORDERED: MORPHINE SULFATE INJ 2 MG/ML DISP.SYRIN IV ONE (05:00)
--- NOTE | 2020-03-23 05:45 | NUR ---
REPORT GIVEN TO ANTHONY COVARRUBIAS FOR RUIZ.
[2020-03-23] MEDS: HEPARIN SODIUM, PORCINE 5000 UNITS/1 ML VIAL SQ SCH ×2 (06:00→20:02)
[2020-03-23] MEDS ORDERED: Z GUARD REMEDY 2 OZ OINT TP PRN (06:00)
[2020-03-23] MEDS ORDERED: ACETAMINOPHEN 325 MG TABLET PO PRN (06:00)
[2020-03-23] MEDS ORDERED: MAG HYDROX/AL HYDROX/SIMETH 30 ML UDC PO PRN (06:00)
--- NOTE | 2020-03-23 06:19 | NUR ---
WAREHOUSE SUPERVISOR 3RD SHIFT ADMITTING NOTES RECEIVED REPORT FROM SATISH MEDRANO; PATIENT ARRIVED ON UNIT 06, AWAKE, A/OX4; BREATHING EVEN AND UNLABORED; NO SOB NOTED; PATIENT TOLERATING ROOM AIR WELL; TELE MONITOR ATTACHED AND READS SINUS JOSE 55BPM; R HAND 22G SL INTACT AND PATENT, FLUSHING WELL; AWAITING CXR AND STAT EKG ORDER; SAFETY PRECAUTIONS IMPLEMENTED; BED LOCKED IN LOW POSITION; SIDE RAILS X2; CALL LIGHT WITHIN REACH; WILL ENDORSE RUIZ TO ONCOMING NURSE
[2020-03-23 06:24] VITALS: BP 130/69
--- NOTE | 2020-03-23 06:30 | NUR ---
FORECLOSURE FIELD INSPECTOR NOTES SKIN ASSESSMENT AND PICTURES TAKEN, FILED IN PATIENT BINDER; PATIENT RESTING COMFORTABLY IN BED; WILL ENDORSE RUIZ TO ONCOMING SHIFT
--- NOTE | 2020-03-23 07:20 | NUR ---
RISK CONSULTING TREASURY DIRECTOR OPENING NOTES RECEIVED PATIENT IN BED, AWAKE, A/O X4. PATIENT BREATHING ON ROOM AIR AND SATURATING WELL; BREATHING IS EVEN AND UNLABORED AT THIS TIME. EXTERNAL MONITOR WITH A READING OF NORMAL SR 65. R HAND G#22 PRESENT AND INTACT; FLUSHING WELL. SAFETY PRECAUTIONS IN PLACE; BED IN LOW POSITION AND LOCKED, RAILS UP X2, CALL LIGHT WITHIN REACH. WILL CONTINUE TO MONITOR PATIENT.
[2020-03-23] MEDS: CALCIUM ACETATE 667 MG TABLET PO SCH ×4 (07:58→16:33)
[2020-03-23 08:00] VITALS: BP 144/72
[2020-03-23] MEDS: ASPIRIN EC 81 MG TABLET.DR PO SCH (08:48)
[2020-03-23] MEDS: FERROUS SULFATE (325 MG) 325 MG/TAB TABLET PO SCH (08:48)
[2020-03-23] MEDS: FUROSEMIDE 40 MG/4 ML VIAL IV SCH ×2 (08:48→16:33)
--- NOTE | 2020-03-23 08:58 | NUR ---
TRACING LATHE SET UP OPERATOR NOTES PATIENT REFUSES ANY BLOOD PRESSURE MEDICATIONS. SAID HE WILL NEVER TAKE THEM AGAIN BECAUSE THEY MESS HIM UP.
[2020-03-23] MEDS: CARVEDILOL 6.25 MG TABLET PO SCH ×2 (09:00→16:25)
[2020-03-23] MEDS: hydrALAZINE HCL 10 MG TABLET PO SCH ×3 (09:00→16:25)
[2020-03-23] MEDS ORDERED: MORPHINE SULFATE INJ 2 MG/ML DISP.SYRIN IM ONE (10:30)
--- NOTE | 2020-03-23 11:28 | NUR ---
MS RN NOTES PATIENT IN LOTS OF PAIN. HIS IV LINE IS NOT WORKING DUE TO PATIENT MOVING HIS ARM AT DISLODGING IT. MULTIPLE ATTEMPTS TO REINSERT WERE NOT SUCCESSFUL. UNABLE TO GIVE PRN MEDICATION (IV). TEXTED MD. HE SAID OK TO GIVE NORCO. NOTIFIED MD THAT PT IS ALLERGIC TO CODEINE. STILL SAID TO TRY NORCO. PER PATIENT HE HAS BEEN TAKING NORCO AT HOME AND IT SEEMS TO WORK FINE. ORDER PLACED FOR MIDLINE INSERTION.
[2020-03-23] MEDS ORDERED: HYDROCODONE/APAP 5/325MG 1 EACH TABLET PO ONE (11:30)
--- NOTE | 2020-03-23 12:06 | NUR ---
MS RN NOTES PATIENT REFUSED CALCIUM ACETATE AT THIS TIME SAYING HE DOES NOT TAKE IT AFTER NORCO. ONLY IN ABOUT 4 HOURS HE IS OK TO TAKE IT. WILL CONTINUE TO MONITOR.
--- NOTE | 2020-03-23 13:05 | NUR ---
MS RN NOTES PATIENT HAD HOME MEDICATIONS. MEDICATIONS TAKEN DOWN TO THE PHARMACY.
[2020-03-23 16:00] VITALS: BP 144/79
[2020-03-23] MEDS: ONDANSETRON HCL/PF 4 MG/2 ML VIAL IVP PRN ×2 (18:19→23:22)
[2020-03-23] MEDS: HYDROCODONE/APAP 5/325MG 1 EACH TABLET PO PRN ×2 (18:20→23:18)
--- NOTE | 2020-03-23 18:40 | NUR ---
MS RN CLOSING NOTES PATIENT IN BED, AWAKE, A/O X4. PATIENT BREATHING ON ROOM AIR AND SATURATING WELL; BREATHING IS EVEN AND UNLABORED AT THIS TIME. R HAND G#22 PRESENT AND INTACT; FLUSHING WELL. YARBROUGH CATH IN PLACE, DRAINING CLEAR YELLOW URINE. ALL NEEDS ATTENDED TO THROUGHOUT THE DAY. SAFETY PRECAUTIONS IN PLACE; BED IN LOW POSITION AND LOCKED, RAILS UP X2, CALL LIGHT WITHIN REACH. WILL ENDORSE TO HEAT CURER NURSE.
--- NOTE | 2020-03-23 19:29 | NUR ---
MS RN OPENING NOTES RECEIVED PATIENT, RESTING IN BED COMFORTABLY, A/OX4; BREATHING EVEN AND UNLABORED, PATIENT TOLERATING ROOM AIR WELL; EDI MIDLINE #18 INTACT AND PATENT FLUSHING WELL; NO S/S OF REDNESS OR INFILTRATION; YARBROUGH CATH IN PLACE, FLOWING YELLOW OUTPUT; SAFETY PRECAUTIONS IMPLEMENTED; BED LOCKED IN LOW POSITION; SIDE RAILS X2; CALL LIGHT WITHIN REACH; WILL CONT TO MONITOR
--- NOTE | 2020-03-23 19:44 | NUR ---
MS RN NOTES SPOKE WITH LAB; PER LAB; AWAITING CALL FROM MORNING NURSE TO INFORM THEM OF THE COMPLETION OF MIDLINE INSERTION; LAB INFORMED; LAB WILL COME TO DRAW LABS FOR PATIENT; WILL CONT TO MONITOR
[2020-03-23 20:00] VITALS: BP 151/76
--- NOTE | 2020-03-23 20:02 | NUR ---
MS RN NOTES PER PATIENT, HIS PRIMARY DOCTORS HAVE TOLD HIM NOT TO TAKE HEPARIN ANYMORE SINCE IT MAKES HIS VEINS SMALL; PATIENT WAS EDUCATED ON RISKS AND BENEFITS OF HEPARIN SQ DURING HOSPITALIZATION; PATIENT STILL REFUSED; PATIENT REPORTED HE IS ALREADY TAKING A BABY ASPIRIN; WILL CONT TO MONITOR
--- NOTE | 2020-03-23 20:23 | NUR ---
MS RN NOTES SPOKE WITH ABUNDIO FROM LAB; NEED TO REDRAW CHEM PANEL D/T SAMPLE HEMOLIZING; LAB COMING UP; WILL CONT TO MONITOR
--- NOTE | 2020-03-23 20:32 | NUR ---
MS RN NOTES SOLUTIONS DEVELOPMENT ANALYST AT BEDSIDE; LABS REDRAWN/COLLECTED; AWAITING RESULTS; WILL CONT TO MONITOR
[2020-03-23 21:07] LABS: BILIRUBIN,DIRECT 0.2 mg/dL (0.0-0.2); BILIRUBIN,TOTAL 0.5 mg/dL (0.2-1.0); MAGNESIUM 1.3 mg/dL (1.8-2.4); PHOSPHORUS 3.4 mg/dL (2.5-4.9)
[2020-03-23 21:10] LABS: APPEARANCE,URINE CLEAR (CLEAR); BILIRUBIN,URINE NEGATIVE (NEGATIVE); BLOOD, URINE MODERATE Ery/uL (NEGATIVE); COLOR,URINE YELLOW (YELLOW); KETONES,URINE NEGATIVE (NEGATIVE); LEUKOCYTE ESTERASE ,URINE SMALL (NEGATIVE); NITRITE, URINE NEGATIVE (NEGATIVE); PROTEIN,URINE 100 mg/dl (NEGATIVE); UGLUCOSE NEGATIVE (NEGATIVE); UROBILINOGEN,URINE 0.2 EU/dL (0.2)
[2020-03-23 21:12] LABS: THYROID STIMULATING HORMONE 4.476 uIU/mL (0.358-3.74)
[2020-03-23 21:16] LABS: CREATININE, URINE 69.3 MG/DL (30.0-125.0); URINE TOTAL PROTEIN 181.3 mg/dL (0-11.9)
[2020-03-23 21:20] LABS: BACTERIA,URINE 2+ /HPF (None Seen); SQUAMOUS EPITHELIAL CELL,UR 0-2 /HPF (None Seen); WBC,URINE 21-50 /HPF (0-3)
[2020-03-23 21:39] LABS: EOSINOPHIL,URINE RARE
--- NOTE | 2020-03-23 22:09 | NUR ---
MS RN NOTES PATIENT REPORTED ALLERGY TO CODEINE; REACTION IS NAUSEA AND REDNESS; PATIENT VERBALIZING NORCO NOT HELPING; SPOKE WITH NEUROLOGY PROFESSOR PHARMACY REGARDING MORPHINE PRN FOR PATIENT, IF POSSIBLE TO ADMINISTER; AIRAM FROM NEUROLOGY PROFESSOR PHARMACY REPORTED NOT TO GIVE MORPHINE AND CLARIFY WITH MD; WILL INFORM MD AND CLARIFY OTHER PAIN MEDICATION FOR PATIENT; WILL CONT TO MONITOR
--- NOTE | 2020-03-23 22:28 | NUR ---
MS RN NOTES SPOKE WITH LAURITA CHAPMAN REGARDING PATIENT CONCERNS FOR PAIN MEDICATION; ARI ORDERED DILAUDID 1MG IVP X1; WILL ADMINISTER AND CONT TO MONITOR
--- NOTE | 2020-03-23 23:15 | NUR ---
MS COVARRUBIAS NOTES INFORMED PATIENT ON 1MG DILAUDID IVP ORDER; PATIENT WANTS TO TAKE NORCO FOR THE TIME BEING AND SAVE THE DILAUDID IVP X1 FOR LATER IN THE NIGHT SO HE WILL BE ABLE TO SLEEP; WILL ADMINISTER NORCO PER MD ORDER AND CONTINUE TO MONITOR Addendum: 03/23/20 at 2331 by EMMY CHUA RN PATIENT REQUESTED ZOFRAN TO BE GIVEN WITH NORCO; PATIENT HAS NAUSEA; ZOFRAN ADMINISTERED PER MD ORDER;
--- NOTE | 2020-03-24 01:15 | NUR ---
MS RN NOTES PATIENT REPORTED HE IS NOT ALLERGIC TO INSULIN; PATIENT REPORTED HE TAKES 24 UNITS OF BASAGLAR EVERY NIGHT; WILL UPDATE ALLERGIES AND INFORM MD; WILL CONT TO MONITOR PATIENT
--- NOTE | 2020-03-24 01:31 | NUR ---
MS RN NOTES INFORMED MANAGER COMPANY MD; LAURITA CHAPMAN ORDERED ACCU CHECK ACHS AND RE-START LONG ACTING INSULIN TONIGHT; WILL CONT TO MONITOR
[2020-03-24] MEDS: ONDANSETRON HCL/PF 4 MG/2 ML VIAL IVP PRN ×3 (02:52→22:25)
--- NOTE | 2020-03-24 03:00 | NUR ---
MS RN NOTES PATIENT REQUESTED ZOFRAN; PATIENT WAS INFORMED THAT ZOFRAN NOT DUE, ORDERED ZOFRAN Q6HR, IT IS ONLY 4HRS; PATIENT CANNOT WAIT FOR ZOFRAN, PATIENT ADAMANT; ADMINISTERED ZOFRAN PER PATIENT REQUEST; PATIENT ALSO REQUESTING DILAUDID, WILL ADMINISTER DILAUDID ORDERED; WILL CONT TO MONITOR;
[2020-03-24] MEDS: HYDROMORPHONE 1 MG/1 ML DISP.SYRIN IV PRN (03:22)
--- NOTE | 2020-03-24 05:21 | NUR ---
MS RN NOTES PATIENT REQUESTED REJI TO BE REMOVED FROM UNDERNEATH HIM; PATIENT REPORTED HE FELT DISCOMFORT WITH THE REJI; PATIENT WAS EDUCATED ON RISK AND BENEFITS; PATIENT STILL REFUSED TO HAVE REJI IN PLACE; PATIENT REPORTED TO BE FEELING BETTER WITHOUT IT; WILL INFORM MORNING SHIFT; WILL CONT TO MONITOR
[2020-03-24] MEDS: BLOOD SUGAR DIAGNOSTIC 1 EACH STRIP IN SCH ×4 (06:32→22:00)
--- NOTE | 2020-03-24 06:52 | NUR ---
MS RN CLOSING NOTES PATIENT RESTING IN BED COMFORTABLY; BREATHING EVEN AND UNLABORED; NO SOB NOTED; PATIENT TOLERATING ROOM AIR WELL; ABLE TO MAKE NEEDS KNOWN; EDI MIDLINE #18 SL INTACT AND PATENT; FLUSHING WELL, NO S/S OF REDNESS OR INFILTRATION NOTED; YARBROUGH CATH IN PLACE; FLOWING YELLOW OUTPUT; YARBROUGH OUTPUT 1400 OUTPUT; ALL NEEDS RENDERED; SAFETY PRECAUTIONS IMPLEMENTED; BED LOCKED IN LOW POSITION; SIDE RAILS X3; CALL LIGHT WITHIN REACH; WILL ENDORSE RUIZ TO ONCOMING NURSE
[2020-03-24 07:15] LABS: BILIRUBIN,TOTAL 0.4 mg/dL (0.2-1.0); CALCIUM, SERUM 7.7 mg/dL (8.5-10.1); CREATININE 2.2 mg/dL (0.6-1.3); MAGNESIUM 1.4 mg/dL (1.8-2.4); PHOSPHORUS 3.2 mg/dL (2.5-4.9); POTASSIUM 4.8 mmol/L (3.5-5.1); TOTAL PROTEIN, SERUM 6.1 g/dL (6.4-8.2)
--- NOTE | 2020-03-24 07:50 | NUR ---
M/S RN NOTES PATIENT AWAKE IN BED, NO RESPIRATORY DISTRESS, C/O PAIN IN THE SCROTUM, TOLERABLE AT THIS TIME WITH INACTIVITY. SKIN WARM TO TOUCH, PATIENT'S SCROTUM SWOLLEN AND ENLARGED, DRESSINGS ON BILAT LOWER ETREMITIES DRY AND INTACT. MIDLINE ON THE RT UPPER ARM INTACT AND PATENT. PATIENT'S NEEDS ATTENDED, BED ON LOWEST LOCKED POSITION, CALL LIGHT WITHIN REACH. WILL CONTINUE TO MONITOR.
[2020-03-24 08:00] VITALS: BP 125/59
[2020-03-24 08:03] LABS: BASOPHILS # (AUTO) 0.1 /CMM (0.0-0.2); BASOPHILS % (AUTO) 1.3 % (0.0-2.0); EOSINOPHILS % (AUTO) 4.5 % (0.0-6.0); HEMATOCRIT 30 % (39-51); HEMOGLOBIN 9.6 g/dL (13.5-17.5); LYMPHOCYTES # (AUTO) 2.2 /CMM (0.8-4.8); LYMPHOCYTES % (AUTO) 21.3 % (20.0-44.0); MEAN CORPUSCULAR HGB CONC 32 g/dl (31.0-36.0); MEAN CORPUSCULAR VOLUME 89 fL (80-96); MONOCYTES % (AUTO) 9.8 % (2.0-12.0); NEUTROPHILS # (AUTO) 6.6 /CMM (1.8-8.9); NEUTROPHILS % (AUTO) 63.1 % (43.0-81.0); PLATELET COUNT (AUTO) 176 /CMM (150-450); RED BLOOD CELL COUNT(AUTO) 3.38 MIL/uL (4.5-6.0); WHITE BLOOD COUNT (AUTO) 10.5 K/uL (4.3-11.0)
[2020-03-24] MEDS: CARVEDILOL 6.25 MG TABLET PO SCH ×2 (08:43→18:00)
[2020-03-24] MEDS: FUROSEMIDE 40 MG/4 ML VIAL IV SCH ×2 (08:43→17:59)
[2020-03-24] MEDS: CALCIUM ACETATE 667 MG TABLET PO SCH ×3 (08:43→18:02)
[2020-03-24] MEDS: FERROUS SULFATE (325 MG) 325 MG/TAB TABLET PO SCH (08:43)
[2020-03-24] MEDS: ASPIRIN EC 81 MG TABLET.DR PO SCH (08:44)
[2020-03-24] MEDS: HEPARIN SODIUM, PORCINE 5000 UNITS/1 ML VIAL SQ SCH ×2 (08:44→22:00)
[2020-03-24] MEDS: hydrALAZINE HCL 10 MG TABLET PO SCH ×3 (08:44→18:00)
[2020-03-24] MEDS: THYROID PO SCH (08:46)
--- NOTE | 2020-03-24 09:53 | NUR ---
WOUND CARE CONSULT: PT PRESENTS WITH BILATERAL LOWER LEG WRAPS WHICH HE REFUSED TO HAVE REMOVED. PT FOLLOWED BY DR ALONSO AND DR AUGUSTINE. DR ALONSO NOTIFIED OF PT ADMISSION. PT REFUSED TO TURN FOR FULL SKIN ASSESSMENT OF BACK AND BUTTOCKS. PT NOTED TO HAVE VERY EDEMATOUS SCROTUM WITH WEEPING EDEMA AND RASH/REDNESS TO ABDOMINAL AND GROIN FOLDS, PRESENT ON ADMISSION. RECOMMENDATIONS MADE FOR SKIN CARE AND PROTECTION. DISCUSSED WITH NURSING STAFF. PT REFUSED BARIATRIC BED. PT AGREES TO BE PLACED ON SHADY ISOFLEX LOW AIRLOSS BED. WILL SEE PRN. ESPINOZA IN AGREEMENT WITH PLAN OF CARE. Addendum: 03/24/20 at 0956 by HEATHER COOK WNDNU Amended: Links added.
[2020-03-24] MEDS: MORPHINE SULFATE INJ 2 MG/ML DISP.SYRIN IV PRN ×3 (11:18→22:12)
[2020-03-24] MEDS: Magnesium 1GM/D5W 100ML PREMIX 100 ML IV SCH ×3 (11:27→13:43)
[2020-03-24] MEDS: CEFTRIAXONE 1 G in IV D5W 50 ML IV SCH (15:06)
[2020-03-24 16:00] VITALS: BP 144/80
[2020-03-24] MEDS: CLOTRIMAZOLE 1% 15 GM TUBE TP SCH (18:02)
[2020-03-24 20:00] VITALS: BP 136/65
--- NOTE | 2020-03-24 20:15 | NUR ---
MS RN NOTES PATIENT RECEIVED IN BED, AWAKE AND ORIENTED X 4. PATIENT ON ROOM AIR, NO SIGNS OF RESPIRATORY DISTRESS AT THIS TIME, WITH EVEN NON-LABORED BREATHING. PATIENT YARBROUGH CATHETER INTACT WITH YELLOW URINE OUTPUT. RIGHT UPPER MIDLINE INTACT AND PATENT. BILATERAL FOOT DRESSING CHANGED. DRESSING INTACT. SAFETY PRECAUTIONS IN PLACE WITH BED LOCKED, BED IN THE LOWEST POSITION, BILATERAL SIDE RAILS UP AND CALL LIGHT WITHIN EASY REACH OF THE PATIENT. WILL CONTINUE TO MONITOR PATIENT.
--- NOTE | 2020-03-24 22:00 | NUR ---
MS RN NOTES PATIENT BLOOD SUGAR 147, NO INSULIN GIVEN DUE TO NO SLIDING SCALE. PER MD DEBI TAVARES, ORDERED ACHS with mild SSI. WILL CONTINUE TO MONITOR PATIENT.
--- NOTE | 2020-03-24 22:25 | NUR ---
MS RN NOTES PATIENT STATING DISCOMFORT AND 10/10 GENERALIZED PAIN, BILATERAL LOWER EXTREMITIES, AND SCROTUM PAIN. PATIENT REQUESTED PAIN MEDICATION. VITAL SIGNS ARE WNL, ADMINISTERED PRN PAIN MEDICATION MORPHINE 2mg IV. PATIENT ALSO REQUESTED ZOFRAN, STATING HE FELT NAUSEOUS AND WANTS TO THROW UP. NO EMESIS PRESENT. ADMINISTERED PRN ZOFRAN IVP 4mg. WILL REASSESS PATIENT AND WILL CONTINUE TO MONITOR PATIENT.
[2020-03-25] MEDS ORDERED: DEXTROSE 50%-WATER 50 ML DISP.SYRIN IV PRN (00:30)
[2020-03-25] MEDS: MORPHINE SULFATE INJ 2 MG/ML DISP.SYRIN IV PRN ×4 (04:34→19:49)
[2020-03-25] MEDS: ONDANSETRON HCL/PF 4 MG/2 ML VIAL IVP PRN ×2 (04:41→19:49)
--- NOTE | 2020-03-25 07:03 | NUR ---
MS RN NOTES PATIENT RESTING IN BED COMFORTABLY, NO SIGNS OF RESPIRATORY DISTRESS AND BREATHING EVEN AND NON-LABORED, AND NO SOB NOTED. EDI MIDLINE, SL INTACT AND PATENT; FLUSHING WELL, NO S/S OF REDNESS OR INFILTRATION NOTED. YARBROUGH CATHETER IN PLACE, FLOWING YELLOW OUTPUT. MET ALL OF PATIENT'S NEEDS. SAFETY PRECAUTIONS IN PLACE WITH BED IN THE LOWEST POSITION, BED LOCKED, BILATERAL SIDE RAILS UP, AND CALL LIGHT WITHIN EASY REACH OF THE PATIENT. WILL ENDORSE PLAN OF CARE TO UPCOMING DAYSHIFT NURSE.
[2020-03-25 07:26] LABS: BASOPHILS # (AUTO) 0.1 /CMM (0.0-0.2); BASOPHILS % (AUTO) 0.9 % (0.0-2.0); EOSINOPHILS % (AUTO) 6.2 % (0.0-6.0); HEMATOCRIT 31 % (39-51); HEMOGLOBIN 9.9 g/dL (13.5-17.5); LYMPHOCYTES # (AUTO) 1.8 /CMM (0.8-4.8); LYMPHOCYTES % (AUTO) 17.8 % (20.0-44.0); MEAN CORPUSCULAR HGB CONC 32 g/dl (31.0-36.0); MEAN CORPUSCULAR VOLUME 89 fL (80-96); MONOCYTES # (AUTO) 1.1 /CMM (0.1-1.30); MONOCYTES % (AUTO) 10.8 % (2.0-12.0); NEUTROPHILS # (AUTO) 6.7 /CMM (1.8-8.9); NEUTROPHILS % (AUTO) 64.3 % (43.0-81.0); PLATELET COUNT (AUTO) 184 /CMM (150-450); WHITE BLOOD COUNT (AUTO) 10.4 K/uL (4.3-11.0)
[2020-03-25 07:47] LABS: CREATININE 1.8 mg/dL (0.6-1.3); MAGNESIUM 1.8 mg/dL (1.8-2.4); PHOSPHORUS 3.2 mg/dL (2.5-4.9); POTASSIUM 5.2 mmol/L (3.5-5.1)
[2020-03-25 08:00] VITALS: BP 135/66
[2020-03-25] MEDS: BLOOD SUGAR DIAGNOSTIC 1 EACH STRIP IN SCH ×4 (08:23→22:08)
[2020-03-25] MEDS: CALCIUM ACETATE 667 MG TABLET PO SCH ×3 (08:30→17:58)
[2020-03-25] MEDS: FUROSEMIDE 40 MG/4 ML VIAL IV SCH ×2 (09:25→17:58)
[2020-03-25] MEDS: ASPIRIN EC 81 MG TABLET.DR PO SCH (09:25)
[2020-03-25] MEDS: CARVEDILOL 6.25 MG TABLET PO SCH ×2 (09:25→17:59)
[2020-03-25] MEDS: hydrALAZINE HCL 10 MG TABLET PO SCH ×3 (09:26→17:58)
[2020-03-25] MEDS: FERROUS SULFATE (325 MG) 325 MG/TAB TABLET PO SCH (09:26)
[2020-03-25] MEDS: HEPARIN SODIUM, PORCINE 5000 UNITS/1 ML VIAL SQ SCH ×2 (09:27→21:44)
[2020-03-25] MEDS: CLOTRIMAZOLE 1% 15 GM TUBE TP SCH ×2 (09:30→17:59)
[2020-03-25] MEDS: AMMONIUM LACTATE 227 GM BOTTLE TP SCH (09:30)
[2020-03-25] MEDS: THYROID PO SCH (09:32)
[2020-03-25] MEDS: INSULIN REGULAR, HUMAN 100 UNIT/ML 3 ML VIAL SQ PRN ×4 (09:43→21:58)
[2020-03-25 14:07] LABS: PTH, INTACT 45 pg/mL (15-65)
[2020-03-25] MEDS: CEFTRIAXONE 1 G in IV D5W 50 ML IV SCH (15:45)
[2020-03-25 16:00] VITALS: BP 137/75
[2020-03-25 19:30] VITALS: BP 140/59
--- NOTE | 2020-03-25 19:30 | NUR ---
MS RN NOTES PATIENT IN BED, AWAKE, ALERT AND ORIENTED X 4. BREATHING EVEN AND UNLABORED ON ROOM AIR. SHOWS NO SIGNS OF ACUTE RESPIRATORY DISTRESS. NO ACUTE PAIN. YARBROUGH CATHETER CLEAN DRY AND INTACT. FLOWING YELLOW URINE. IV ON EDI MIDLINE SHOWS NO SIGNS OF INFILTRATION, NO REDNESS. SAFETY PRECAUTIONS IN PLACE. BED IN LOWEST POSITION, LOCKED, AND CALL LIGHT KEPT WITHIN REACH. WILL CONTINUE TO MONITOR.
--- NOTE | 2020-03-25 19:49 | NUR ---
MS RN NOTES PATIENT COMPLAINING OF PAIN 9/10 GIVEN PRN MORPHINE AND PRN ZOFRAN AT 1949. PT BECOMES NAUSEOUS FROM PAIN MEDICATIONS. WILL CONTINUE TO MONITOR.
[2020-03-25 20:00] VITALS: BP 140/59
[2020-03-26] MEDS: MORPHINE SULFATE INJ 2 MG/ML DISP.SYRIN IV PRN ×5 (01:29→23:24)
--- NOTE | 2020-03-26 01:29 | NUR ---
MS RN NOTES PATIENT COMPLAINING OF PAIN 07/17. GIVEN MORPHINE PRN AT 0129. WILL CONTINUE TO MONITOR.
[2020-03-26] MEDS: ONDANSETRON HCL/PF 4 MG/2 ML VIAL IVP PRN ×3 (04:52→20:24)
--- NOTE | 2020-03-26 04:52 | NUR ---
MS RN NOTES PATIENT COMPLAINING OF NAUSEA. GIVEN ZOFRAN AT 0452. WILL CONTINUE TO MONITOR.
--- NOTE | 2020-03-26 05:31 | NUR ---
MS RN NOTES PATIENT COMPLAINING OF PAIN 07/17. GIVEN MORPHINE PRN AT 0530. WILL CONTINUE TO MONITOR.
[2020-03-26] MEDS: BLOOD SUGAR DIAGNOSTIC 1 EACH STRIP IN SCH ×4 (06:44→21:24)
--- NOTE | 2020-03-26 06:51 | NUR ---
MS RN NOTES PATIENT IN BED, AWAKE, ALERT AND ORIENTED X 4. BREATHING EVEN AND UNLABORED ON ROOM AIR. SHOWS NO SIGNS OF ACUTE RESPIRATORY DISTRESS. NO ACUTE PAIN. YARBROUGH CATHETER CLEAN DRY AND INTACT. FLOWING YELLOW URINE. IV ON EDI MIDLINE SHOWS NO SIGNS OF INFILTRATION, NO REDNESS. ALL DUE MEDICATIONS GIVEN. SAFETY PRECAUTIONS IN PLACE. BED IN LOWEST POSITION, LOCKED, AND CALL LIGHT KEPT WITHIN REACH. WILL ENDORSE TO ONCOMING NURSE.
--- NOTE | 2020-03-26 07:32 | NUR ---
MS RN OPENING NOTES PATIENT IN BED RESTING COMFORTABLY. PATIENT IN NO ACUTE DISTRESS. NO SOB NOTED. PATIENT BREATHING IS EVEN AND UNLABORED. DR. KIMBALL SEEN AND EVALUATED PATIENT. PATIENT BED ALARM IS ON. SAFETY PRECAUTIONS IN PLACE. PATIENT BED IS LOCKED AND IN LOWEST POSITION. CALL LIGHT WITHIN REACH. WILL CONTINUE TO MONITOR.
[2020-03-26 08:00] VITALS: BP 127/65
[2020-03-26 08:06] LABS: *SPE A/G RATIO 0.7 (0.7-1.7); *SPE ALBUMIN 2.1 g/dL (2.9-4.4); *SPE ALPHA-1-GLOBULIN 0.2 g/dL (0.0-0.4); *SPE ALPHA-2-GLOBULIN 0.7 g/dL (0.4-1.0); *SPE BETA GLOBULIN 0.7 g/dL (0.7-1.3); *SPE GLOBULIN, TOTAL 3.2 g/dL (2.2-3.9); *SPE M-SPIKE Not Observed g/dL (Not Observed); *SPEGAMMA GLOBULIN 1.5 g/dL (0.4-1.8)
[2020-03-26 08:23] LABS: CREATININE 1.9 mg/dL (0.6-1.3); POTASSIUM 5.1 mmol/L (3.5-5.1)
[2020-03-26] MEDS: FERROUS SULFATE (325 MG) 325 MG/TAB TABLET PO SCH (08:29)
[2020-03-26] MEDS: ASPIRIN EC 81 MG TABLET.DR PO SCH (08:29)
[2020-03-26] MEDS: CALCIUM ACETATE 667 MG TABLET PO SCH ×3 (08:29→17:05)
[2020-03-26] MEDS: THYROID PO SCH (08:29)
[2020-03-26 08:30] LABS: BASOPHILS # (AUTO) 0.1 /CMM (0.0-0.2); BASOPHILS % (AUTO) 0.7 % (0.0-2.0); EOSINOPHILS % (AUTO) 8.2 % (0.0-6.0); HEMATOCRIT 31 % (39-51); LYMPHOCYTES % (AUTO) 19.3 % (20.0-44.0); MEAN CORPUSCULAR HGB CONC 32 g/dl (31.0-36.0); MEAN CORPUSCULAR VOLUME 88 fL (80-96); MONOCYTES # (AUTO) 1.1 /CMM (0.1-1.30); MONOCYTES % (AUTO) 10.7 % (2.0-12.0); NEUTROPHILS # (AUTO) 6.5 /CMM (1.8-8.9); NEUTROPHILS % (AUTO) 61.1 % (43.0-81.0); PLATELET COUNT (AUTO) 181 /CMM (150-450); WHITE BLOOD COUNT (AUTO) 10.6 K/uL (4.3-11.0)
[2020-03-26] MEDS: hydrALAZINE HCL 10 MG TABLET PO SCH ×3 (08:30→17:05)
[2020-03-26] MEDS: CARVEDILOL 6.25 MG TABLET PO SCH ×2 (08:30→17:05)
[2020-03-26] MEDS: FUROSEMIDE 40 MG/4 ML VIAL IV SCH ×5 (08:31→17:51)
[2020-03-26] MEDS: HEPARIN SODIUM, PORCINE 5000 UNITS/1 ML VIAL SQ SCH ×2 (08:31→20:19)
[2020-03-26] MEDS: AMMONIUM LACTATE 227 GM BOTTLE TP SCH (08:39)
[2020-03-26] MEDS: CLOTRIMAZOLE 1% 15 GM TUBE TP SCH ×2 (08:39→17:06)
[2020-03-26] MEDS: INSULIN REGULAR, HUMAN 100 UNIT/ML 3 ML VIAL SQ PRN ×3 (11:29→21:25)
[2020-03-26] MEDS: CEFTRIAXONE 1 G in IV D5W 50 ML IV SCH (14:21)
[2020-03-26 16:00] VITALS: BP 125/69
[2020-03-26 17:50] VITALS: BP 122/65
--- NOTE | 2020-03-26 19:32 | NUR ---
MS RN CLOSING NOTES PATIENT IN BED RESTING COMFORTABLY. PATIENT IN NO ACUTE DISTRESS. NO SOB NOTED. PATIENT BREATHING IS EVEN AND UNLABORED. PATIENT BED ALARM IS ON. HOB IS ELEVATED. PATIENT KEPT CLEAN, DRY AND COMFORTABLE THROUGHOUT SHIFT. NEEDS AND CONCERNS ADDRESSED. SAFETY PRECAUTIONS IN PLACE. PATIENT BED IS LOCKED AND IN LOWEST POSITION. CALL LIGHT WITHIN REACH. WILL ENDORSE CARE TO PM SHIFT FOR RUIZ.
--- NOTE | 2020-03-26 19:45 | NUR ---
MS RN OPENING NOTES RECEIVED PATIENT FROM MORNING SHIFT, ALERT AND ORIENTED X 3. VERBALLY RESPONSIVE AND ABLE TO FOLLOW DIRECTIONS. BREATHING REGULAR AND UNLABORED ON ROOM AIR. RIGHT UPPER ARM MIDLINE INTACT AND PATENT FLUSHING WELL WITH NO BLEEDING OR S/S OF INFILTRATION NOTED. DENIES SUICIDAL IDEATION. COMPLAINED OF 9/10 GENERALIZED PAIN; NON-PHARMACOLOGICAL INTERVENTIONS PROVIDED. BED LOW AND LOCKED ON SEMI FOWLERS POSITION. CALL LIGHT IN REACH. WILL CONTINUE TO MONITOR.
[2020-03-26 20:00] VITALS: BP 118/68
[2020-03-26] MEDS: HYDROMORPHONE 1 MG/1 ML DISP.SYRIN IV PRN (20:17)
--- NOTE | 2020-03-26 20:30 | NUR ---
MS RN NOTES PATIENT COMPLAINED OF 9/10 GENERALIZED BODY PAIN, DILAUDID 1MG GIVEN VIA IV PUSH. NON-PHARMACOLOGICAL INTERVENTIONS PROVIDED. VITAL SIGNS WNL. WILL CONTINUE TO MONITOR.
--- NOTE | 2020-03-26 22:00 | NUR ---
MS RN NOTES BS 173mg/dl, 3UNITS REGULAR INSULIN GIVEN SQ. SNACKS PROVIDED ON BEDSIDE. WILL CONTINUE TO MONITOR.
[2020-03-27] MEDS: ONDANSETRON HCL/PF 4 MG/2 ML VIAL IVP PRN ×3 (03:30→22:03)
[2020-03-27] MEDS: HYDROMORPHONE 1 MG/1 ML DISP.SYRIN IV PRN (03:30)
--- NOTE | 2020-03-27 06:30 | NUR ---
MS RN CLOSING NOTES PATIENT IN BED, ALERT AND ORIENTED X 3. AFEBRILE WITH NO S/S OF DISTRESS OBSERVED. RIGHT UPPER ARM MIDLINE PATENT AND FLUSHING WELL. NO COMPLAINTS OF PAIN/DISCOMFORT REPORTED AT THIS TIME. YARBROUGH CATH INTACT DRAINING CLEAR YELLOW URINE 3050cc OUTPUT. BED LOW AND LOCKED ON SEMI FOWLERS POSITION. CALL LIGHT IN REACH. WILL ENDORSE TO MORNING SHIFT FOR RUIZ.
[2020-03-27] MEDS: INSULIN REGULAR, HUMAN 100 UNIT/ML 3 ML VIAL SQ PRN ×3 (06:38→22:02)
[2020-03-27] MEDS: BLOOD SUGAR DIAGNOSTIC 1 EACH STRIP IN SCH ×4 (06:38→22:00)
[2020-03-27 07:51] LABS: BASOPHILS # (AUTO) 0.1 /CMM (0.0-0.2); BASOPHILS % (AUTO) 1.1 % (0.0-2.0); EOSINOPHILS % (AUTO) 10.4 % (0.0-6.0); HEMATOCRIT 33 % (39-51); HEMOGLOBIN 10.4 g/dL (13.5-17.5); LYMPHOCYTES % (AUTO) 21.7 % (20.0-44.0); MEAN CORPUSCULAR HGB CONC 32 g/dl (31.0-36.0); MEAN CORPUSCULAR VOLUME 88 fL (80-96); NEUTROPHILS % (AUTO) 55.8 % (43.0-81.0); PLATELET COUNT (AUTO) 212 /CMM (150-450); RED BLOOD CELL COUNT(AUTO) 3.72 MIL/uL (4.5-6.0)
[2020-03-27 08:00] VITALS: BP 137/67
[2020-03-27 08:02] LABS: CALCIUM, SERUM 8.7 mg/dL (8.5-10.1); CREATININE 1.9 mg/dL (0.6-1.3); POTASSIUM 5.1 mmol/L (3.5-5.1)
[2020-03-27] MEDS: CALCIUM ACETATE 667 MG TABLET PO SCH ×3 (08:40→17:05)
[2020-03-27] MEDS: FERROUS SULFATE (325 MG) 325 MG/TAB TABLET PO SCH (08:40)
[2020-03-27] MEDS: ASPIRIN EC 81 MG TABLET.DR PO SCH (08:40)
[2020-03-27] MEDS: CARVEDILOL 6.25 MG TABLET PO SCH ×2 (08:41→16:35)
[2020-03-27] MEDS: FUROSEMIDE 40 MG/4 ML VIAL IV SCH ×2 (08:41→17:04)
[2020-03-27] MEDS: MORPHINE SULFATE INJ 2 MG/ML DISP.SYRIN IV PRN ×3 (08:43→22:04)
[2020-03-27] MEDS: HEPARIN SODIUM, PORCINE 5000 UNITS/1 ML VIAL SQ SCH ×2 (08:54→21:54)
[2020-03-27] MEDS: hydrALAZINE HCL 10 MG TABLET PO SCH ×3 (09:00→16:04)
[2020-03-27] MEDS: THYROID PO SCH (09:00)
[2020-03-27] MEDS: CLOTRIMAZOLE 1% 15 GM TUBE TP SCH ×2 (09:56→17:04)
[2020-03-27] MEDS: AMMONIUM LACTATE 227 GM BOTTLE TP SCH (09:56)
[2020-03-27 16:00] VITALS: BP 126/74
[2020-03-27] MEDS: CEFTRIAXONE 1 G in IV D5W 50 ML IV SCH (16:34)
--- NOTE | 2020-03-27 19:30 | NUR ---
MS RN OPENING NOTE RECEIVED PATIENT IN BED. TOLERATING ROOM AIR. RESPIRATIONS ARE EVEN AND UNLABORED. NO S/S SOB NOTED. C/O PAIN IN SCROTUM, INFORMED WILL ADMINISTER PAIN MEDICATION ONCE REPORT IS RECEIVED ON ALL PATIENTS. IN NO APPARENT DISTRESS. IV ACCESS IN EDI MIDLINE PATENT AND SALINE LOCKED. YARBROUGH CATHETER IS PRESENT, DRAINING TO GRAVITY, URINE US YELLOW AND CLEAR. BED IS LOW AND LOCKED. HOB IN HIGH FOWLERS, SIDE RIALS UP X2. CALL LIGHT WITHIN REACH. WILL CONTINUE TO MONITOR.
[2020-03-27 20:00] VITALS: BP 122/61
--- NOTE | 2020-03-27 22:04 | NUR ---
MS RN NOTE ADMINISTERED PRN MORPHINE 2MG FOR PAIN 10/10IN SCROTUM. ALSO ADMINISTERED PRN ZOFRAN 4MG. WILL CONTINUE TO MONITOR.
--- NOTE | 2020-03-27 23:48 | NUR ---
MS RN NOTE CALLED SR. MANAGER CORPORATE COMMUNICATIONS MD, DR. HERNANDEZ, TO NOTIFY THAT THE PATIENT STATED HE HAS NOT HAD A BM IN 4 DAYS. PATIENT IS REFUSING PRUINE JUICE AND THERE IS NO PRN ORDER FOR MILK OF MAGNESIA. SUGGESTED ORDER FOR M.O.M.. MD TELEPHONE ORDER MILK OF MAGNESIA PRN DAILY. ORDER READ BACK NOTED AND CARRIED OUT. WILL CONTINUE TO MONITOR.
[2020-03-28] MEDS ORDERED: MAGNESIUM HYDROXIDE 30 ML UDC PO PRN
[2020-03-28] MEDS: MORPHINE SULFATE INJ 2 MG/ML DISP.SYRIN IV PRN ×5 (02:24→22:17)
[2020-03-28] MEDS: BLOOD SUGAR DIAGNOSTIC 1 EACH STRIP IN SCH ×4 (06:02→22:54)
[2020-03-28] MEDS: ONDANSETRON HCL/PF 4 MG/2 ML VIAL IVP PRN ×2 (06:07→22:22)
--- NOTE | 2020-03-28 06:07 | NUR ---
MS RN NOTE ADMINISTERED PRN ZOFRAN 4MG FOR C/O NAUSEA. WILL CONTINUE TO MONITOR.
--- NOTE | 2020-03-28 06:33 | NUR ---
MS RN NOTE ADMINISTERED PRN MORPHINE 2MG FOR PAIN 10/10 IN SCROTUM. WILL CONTINUE TO MONITOR AN ENDORSE TO NEXT SHIFT.
--- NOTE | 2020-03-28 06:58 | NUR ---
MS RN CLOSING NOTE PATIENT IN BED. REMAINS TOLERATING ROOM AIR. RESPIRATIONS ARE EVEN AND UNLABORED. NO SOB NOTED. NO DISTRESS. IV ACCESS MAINTAINED IN EDI MIDLINE PATENT AND SALINE LOCKED. YARBROUGH CATHETER IS MAINTAINED, DRAINING TO GRAVITY, URINE US YELLOW AND CLEAR, OUTPUT 2600. BED REMAINS LOW AND LOCKED. HOB IN HIGH FOWLERS, SIDE RIALS UP X2. CALL LIGHT WITHIN REACH. WILL ENDORSE TO NEXT SHIFT
[2020-03-28 07:24] LABS: EOSINOPHILS % (AUTO) 10.2 % (0.0-6.0); HEMATOCRIT 29 % (39-51); HEMOGLOBIN 9.5 g/dL (13.5-17.5); LYMPHOCYTES % (AUTO) 23.5 % (20.0-44.0); MEAN CORPUSCULAR HGB CONC 32 g/dl (31.0-36.0); MEAN CORPUSCULAR VOLUME 87 fL (80-96); MONOCYTES % (AUTO) 10.1 % (2.0-12.0); NEUTROPHILS % (AUTO) 55.2 % (43.0-81.0); PLATELET COUNT (AUTO) 231 /CMM (150-450); RED BLOOD CELL COUNT(AUTO) 3.39 MIL/uL (4.5-6.0); WHITE BLOOD COUNT (AUTO) 8.7 K/uL (4.3-11.0)
[2020-03-28 07:25] LABS: BASOPHILS # (AUTO) 0.1 /CMM (0.0-0.2); MONOCYTES # (AUTO) 0.9 /CMM (0.1-1.30); NEUTROPHILS # (AUTO) 4.8 /CMM (1.8-8.9)
[2020-03-28 07:44] LABS: CALCIUM, SERUM 8.2 mg/dL (8.5-10.1); CREATININE 1.9 mg/dL (0.6-1.3)
[2020-03-28 08:00] VITALS: BP 125/71
[2020-03-28] MEDS: ASPIRIN EC 81 MG TABLET.DR PO SCH (08:41)
[2020-03-28] MEDS: CALCIUM ACETATE 667 MG TABLET PO SCH ×3 (08:41→16:38)
[2020-03-28] MEDS: FUROSEMIDE 40 MG/4 ML VIAL IV SCH ×3 (08:42→16:38)
[2020-03-28] MEDS: hydrALAZINE HCL 10 MG TABLET PO SCH ×3 (08:42→16:38)
[2020-03-28] MEDS: CARVEDILOL 6.25 MG TABLET PO SCH ×2 (08:42→16:38)
[2020-03-28] MEDS: THYROID PO SCH (08:45)
[2020-03-28] MEDS: METOLAZONE 2.5 MG TABLET PO SCH (08:46)
[2020-03-28] MEDS: CLOTRIMAZOLE 1% 15 GM TUBE TP SCH ×2 (09:04→16:41)
[2020-03-28] MEDS: AMMONIUM LACTATE 227 GM BOTTLE TP SCH (09:04)
[2020-03-28] MEDS: RIVAROXABAN 10 MG TABLET PO SCH ×2 (09:59→16:40)
[2020-03-28] MEDS: CEFTRIAXONE 1 G in IV D5W 50 ML IV SCH (14:49)
[2020-03-28 16:00] VITALS: BP 138/69
[2020-03-28] MEDS: INSULIN REGULAR, HUMAN 100 UNIT/ML 3 ML VIAL SQ PRN ×2 (17:08→22:57)
--- NOTE | 2020-03-28 18:33 | NUR ---
MS RN END OF SHIFT SUMMARY PT IS A/OX4, AFEBRILE. RESPIRATIONS ARE EVEN AND UNLABORED, NOT IN ANY ACUTE DISTRESS NOTED. DENIES ANY CHEST PAIN, SOB. ABDOMEN IS SOFT, +FLATUS, X1 BM DURING SHIFT. YARBROUGH CATH INTACT, DRAINING CLEAR/YELLOW URINE, DIURESED. DRESSING CHANGE DONE TO BLE BY DR. AUGUSTINE. PAIN MANAGED BY MORPHINE IVP PRN. TOLERATING PO W/ NO N/V. DRESSING CHANGED TO EDI MIDLINE TODAY. REFUSED 1UNIT OF NOVOLOG FOR LUNCH. ALL NEEDS MET AND RENDERED. SAFETY MEASURES ARE IN PLACE. CALL LIGHT IS LEFT WITHIN REACH. WILL MONITOR AND CONTINUE POC.
[2020-03-28] MEDS ORDERED: SODIUM POLYSTYRENE SULFONATE 15 G/60 ML BOTTLE PO ONE (19:30)
--- NOTE | 2020-03-28 19:45 | NUR ---
MS RN OPENING NOTES PATIENT AWAKE IN BED. A/OX4, ABLE TO VERBALIZE NEEDS. ON RA. NO S/S OF ACUTE RESPIRATORY DISTRESS; BREATHING IS EVEN AND UNLABORED. PATIENT C/O BILATERAL LEG PAIN. MIDLINE PRESENT ON RIGHT UPPER ARM, INTACT & PATENT, HEP LOCKED. YARBROUGH CATH PRESENT AND DRAINING WELL. SAFETY MEASURES IN PLACE AND PATIENT'S NEEDS MET. BED LOCKED, ALARM ON, SIDE RAILS X2, CALL LIGHT WITHIN REACH. WILL CONTINUE TO MONITOR.
[2020-03-28 20:00] VITALS: BP 137/58
[2020-03-28] MEDS: HYDROCODONE/APAP 5/325MG 1 EACH TABLET PO PRN (20:06)
[2020-03-28 22:15] VITALS: BP 124/57
[2020-03-29] MEDS: HYDROCODONE/APAP 5/325MG 1 EACH TABLET PO PRN ×4 (01:21→22:11)
[2020-03-29] MEDS ORDERED: diphenhydrAMINE HCL 25 MG CAPSULE PO PRN (02:00)
[2020-03-29] MEDS: MORPHINE SULFATE INJ 2 MG/ML DISP.SYRIN IV PRN ×4 (02:51→21:02)
[2020-03-29] MEDS: BLOOD SUGAR DIAGNOSTIC 1 EACH STRIP IN SCH ×4 (06:32→21:00)
[2020-03-29] MEDS: CALCIUM ACETATE 667 MG TABLET PO SCH ×3 (06:39→17:00)
--- NOTE | 2020-03-29 07:20 | NUR ---
MS RN CLOSING NOTES PATIENT AWAKE IN BED. A/OX4. NO DISTRESS NOTED. MIDLINE PRESENT ON RIGHT UPPER ARM, INTACT & PATENT, HEP LOCKED. YARBROUGH CATH PRESENT AND DRAINING WELL. SAFETY MEASURES IN PLACE AND PATIENT'S NEEDS MET. BED LOCKED, ALARM ON, SIDE RAILS X2, CALL LIGHT WITHIN REACH. WILL ENDORSE TO DAY SHIFT NURSE PLAN OF CARE.
[2020-03-29 07:25] LABS: BASOPHILS # (AUTO) 0.1 /CMM (0.0-0.2); BASOPHILS % (AUTO) 0.8 % (0.0-2.0); EOSINOPHILS % (AUTO) 10.6 % (0.0-6.0); HEMATOCRIT 29 % (39-51); HEMOGLOBIN 9.5 g/dL (13.5-17.5); LYMPHOCYTES # (AUTO) 1.8 /CMM (0.8-4.8); LYMPHOCYTES % (AUTO) 20.8 % (20.0-44.0); MEAN CORPUSCULAR HGB CONC 32 g/dl (31.0-36.0); MEAN CORPUSCULAR VOLUME 87 fL (80-96); MONOCYTES # (AUTO) 1.1 /CMM (0.1-1.30); MONOCYTES % (AUTO) 12.8 % (2.0-12.0); NEUTROPHILS # (AUTO) 4.7 /CMM (1.8-8.9); PLATELET COUNT (AUTO) 210 /CMM (150-450); RED BLOOD CELL COUNT(AUTO) 3.36 MIL/uL (4.5-6.0); WHITE BLOOD COUNT (AUTO) 8.5 K/uL (4.3-11.0)
--- NOTE | 2020-03-29 07:30 | NUR ---
PT RECEIVED RESTING COMFORTABLY IN BED. NO S/S OR C/O PAIN OR DISTRESS NOTED. SIDE RAILS UP X2, CALL LIGHT LEFT WITHIN REACH. WILL CONTINUE PLAN OF CARE.
[2020-03-29 08:00] VITALS: BP 129/65
[2020-03-29] MEDS ORDERED: PIPERACILLIN /TAZOBACTAM 3.375 G in IV D5W 50 ML IV SCH (08:02)
[2020-03-29 08:12] LABS: BILIRUBIN,TOTAL 0.3 mg/dL (0.2-1.0); CALCIUM, SERUM 8.1 mg/dL (8.5-10.1); MAGNESIUM 1.7 mg/dL (1.8-2.4); PHOSPHORUS 3.4 mg/dL (2.5-4.9); POTASSIUM 5.2 mmol/L (3.5-5.1); TOTAL PROTEIN, SERUM 6.4 g/dL (6.4-8.2)
[2020-03-29] MEDS: METOLAZONE 2.5 MG TABLET PO SCH (08:31)
[2020-03-29] MEDS: ASPIRIN EC 81 MG TABLET.DR PO SCH (08:31)
[2020-03-29] MEDS: RIVAROXABAN 10 MG TABLET PO SCH ×2 (08:32→17:01)
[2020-03-29] MEDS: CARVEDILOL 6.25 MG TABLET PO SCH ×2 (08:42→17:00)
[2020-03-29] MEDS: THYROID PO SCH (08:42)
[2020-03-29] MEDS: hydrALAZINE HCL 10 MG TABLET PO SCH ×3 (08:42→17:00)
[2020-03-29] MEDS: CLOTRIMAZOLE 1% 15 GM TUBE TP SCH ×2 (08:43→17:02)
[2020-03-29] MEDS: AMMONIUM LACTATE 227 GM BOTTLE TP SCH (08:43)
[2020-03-29] MEDS: MUPIROCIN OINT 2% 22 GM TUBE TP SCH (08:43)
[2020-03-29] MEDS: FUROSEMIDE 40 MG/4 ML VIAL IV SCH ×3 (10:25→17:00)
[2020-03-29] MEDS ORDERED: Magnesium 1GM/D5W 100ML PREMIX 100 ML IV SCH (11:00)
[2020-03-29] MEDS: INSULIN REGULAR, HUMAN 100 UNIT/ML 3 ML VIAL SQ PRN ×3 (12:10→21:08)
[2020-03-29] MEDS: PIPERACILLIN /TAZOBACTAM 3.375 G in IV D5W 100 ML IV SCH ×2 (15:11→20:56)
[2020-03-29 16:00] VITALS: BP 128/64
[2020-03-29] MEDS: CEFTRIAXONE 1 G in IV D5W 50 ML IV SCH (16:10)
--- NOTE | 2020-03-29 18:32 | NUR ---
CHANGE OF SHIFT REPORT PT RESTING COMFORTABLY IN BED. NO S/S OR C/O PAIN OR DISTRESS NOTED. SIDE RAILS UP X2, CALL LIGHT LEFT WITHIN REACH. PT KEPT CLEAN, DRY, AND COMFORTABLE. NO SIGNIFICANT CHANGES SINCE PREVIOUS SHIFT. WILL GIVE REPORT TO SURYA COVARRUBIAS.
--- NOTE | 2020-03-29 19:10 | NUR ---
RN OPENING NOTES Received patient A/O x4, awake, on RA, ambulatory with walker. With complaints of pain, pt noted no facial grimacing, watching TV and talking on the phone, able to laugh. Instructed on pain meds indication and timing, patient verbalized understanding. Kept on bed clean, dry and comfortable. Will continue to monitor accordingly.
[2020-03-29 20:00] VITALS: BP 125/56
[2020-03-30] MEDS: MORPHINE SULFATE INJ 2 MG/ML DISP.SYRIN IV PRN ×5 (01:06→19:58)
[2020-03-30] MEDS: PIPERACILLIN /TAZOBACTAM 3.375 G in IV D5W 100 ML IV SCH ×3 (05:09→21:32)
[2020-03-30] MEDS: HYDROCODONE/APAP 5/325MG 1 EACH TABLET PO PRN (06:40)
[2020-03-30] MEDS: BLOOD SUGAR DIAGNOSTIC 1 EACH STRIP IN SCH ×4 (06:45→21:52)
--- NOTE | 2020-03-30 07:15 | NUR ---
RN CLOSING NOTES Patient asleep, easily awaken, on RA, no SB/respiratory distress noted. Due meds given as order, no ASE noted. Patient noted able to sit on chair for 3 hrs that claimed to relief his back pain. Patient ambulates with FWW. Able to reposition self independently on bed. All nursing needs attended. Kept on bed clean, dry and comfortable. Endorsed.
--- NOTE | 2020-03-30 07:51 | NUR ---
rn notes Patient received on room air, no sob noted, patient denies pain at this time and thinks the swollen of his scrotum went from a basketball size to a baseball size. Pain under control and believes he will be going home tuesday. Patient able to use walker with good balance.
[2020-03-30 08:13] LABS: BASOPHILS % (AUTO) 0.8 % (0.0-2.0); EOSINOPHILS % (AUTO) 9.3 % (0.0-6.0); HEMATOCRIT 36 % (39-51); HEMOGLOBIN 11.5 g/dL (13.5-17.5); LYMPHOCYTES % (AUTO) 16.3 % (20.0-44.0); MEAN CORPUSCULAR HGB CONC 32 g/dl (31.0-36.0); MEAN CORPUSCULAR VOLUME 88 fL (80-96); MONOCYTES % (AUTO) 10.5 % (2.0-12.0); NEUTROPHILS % (AUTO) 63.1 % (43.0-81.0); PLATELET COUNT (AUTO) 259 /CMM (150-450); RED BLOOD CELL COUNT(AUTO) 4.11 MIL/uL (4.5-6.0); WHITE BLOOD COUNT (AUTO) 7.8 K/uL (4.3-11.0)
[2020-03-30 08:14] LABS: BASOPHILS # (AUTO) 0.1 /CMM (0.0-0.2); LYMPHOCYTES # (AUTO) 1.3 /CMM (0.8-4.8); MONOCYTES # (AUTO) 0.8 /CMM (0.1-1.30)
[2020-03-30] MEDS: ASPIRIN EC 81 MG TABLET.DR PO SCH (08:22)
[2020-03-30] MEDS: CALCIUM ACETATE 667 MG TABLET PO SCH ×3 (08:22→16:42)
[2020-03-30] MEDS: RIVAROXABAN 10 MG TABLET PO SCH ×2 (08:22→16:41)
[2020-03-30] MEDS: AMMONIUM LACTATE 227 GM BOTTLE TP SCH (08:23)
[2020-03-30] MEDS: CLOTRIMAZOLE 1% 15 GM TUBE TP SCH ×2 (08:23→16:22)
[2020-03-30] MEDS: hydrALAZINE HCL 10 MG TABLET PO SCH ×3 (08:23→16:22)
[2020-03-30] MEDS: CARVEDILOL 6.25 MG TABLET PO SCH ×2 (08:23→16:22)
[2020-03-30] MEDS: MUPIROCIN OINT 2% 22 GM TUBE TP SCH (08:23)
[2020-03-30] MEDS: METOLAZONE 2.5 MG TABLET PO SCH (08:23)
[2020-03-30] MEDS: THYROID PO SCH (08:25)
[2020-03-30 08:59] LABS: ALBUMIN 2.6 g/dL (3.4-5.0); BILIRUBIN,TOTAL 0.3 mg/dL (0.2-1.0); CREATININE 2.3 mg/dL (0.6-1.3); MAGNESIUM 1.9 mg/dL (1.8-2.4); PHOSPHORUS 3.7 mg/dL (2.5-4.9); POTASSIUM 4.8 mmol/L (3.5-5.1); TOTAL PROTEIN, SERUM 7.8 g/dL (6.4-8.2)
[2020-03-30 09:39] VITALS: BP 132/70
[2020-03-30] MEDS ORDERED: FUROSEMIDE 40 MG TABLET PO SCH (11:00)
[2020-03-30] MEDS: INSULIN REGULAR, HUMAN 100 UNIT/ML 3 ML VIAL SQ PRN ×3 (12:14→21:54)
[2020-03-30] MEDS: ONDANSETRON HCL/PF 4 MG/2 ML VIAL IVP PRN ×2 (15:12→22:00)
[2020-03-30] MEDS: CEFTRIAXONE 1 G in IV D5W 50 ML IV SCH (15:13)
[2020-03-30 17:07] VITALS: BP 104/51
--- NOTE | 2020-03-30 18:18 | NUR ---
rn notes patient remains on room air, no sob noted, patient shows no s/s of pain at this time. F/C with 2000 mL of drainage. Able to walk with walker with decent balance. Blood sugar checks done and insulin coverage given. No s/s of hypoglycemia noted. Possible Tuesday DC. Bed at the lowest setting, call light within reach, side rails up x2.
--- NOTE | 2020-03-30 19:45 | NUR ---
MS RN OPENING NOTES PATIENT AWAKE AND SITTING ON CHAIR NEXT TO BEDSIDE. A/OX4. ON RA. NO S/S OF ACUTE RESPIRATORY DISTRESS; BREATHING IS EVEN AND UNLABORED. PATIENT C/O OF SLIGHT PAIN IN LEGS. MIDLINE PRESENT ON RIGHT UPPER ARM, INTACT & PATENT, HEP LOCKED. YARBROUGH CATH PRESENT AND DRAINING WELL. SAFETY MEASURES IN PLACE AND PATIENT'S NEEDS MET. BED LOCKED, SIDE RAILS X2, CALL LIGHT WITHIN REACH. WILL CONTINUE TO MONITOR.
--- NOTE | 2020-03-30 19:58 | NUR ---
MS RN NOTES PATIENT C/O GENERALIZED PAIN RATED 10/10. ADMINISTERED PRN MORPHINE 2MG PER PATIENT'S REQUEST. VITAL SIGNS - BP: 119/61 HR: 72. WILL CONTINUE TO MONITOR.
[2020-03-30 20:00] VITALS: BP 119/61
[2020-03-30 20:11] VITALS: BP 119/61
--- NOTE | 2020-03-30 22:26 | NUR ---
MS RN NOTES PATIENT REFUSED WEEKLY SKIN ASSESSMENT PHOTOS AT THIS TIME. STATES "I'M IN TOO MUCH PAIN RIGHT NOW".
[2020-03-31] MEDS: MORPHINE SULFATE INJ 2 MG/ML DISP.SYRIN IV PRN ×5 (00:16→19:24)
--- NOTE | 2020-03-31 00:16 | NUR ---
MS RN NOTES PATIENT C/O SCROTAL PAIN RATED 10/10. ADMINISTERED PRN MORPHINE 2MG PER PATIENT'S REQUEST. VITAL SIGNS - BP: 107/56 HR: 79. WILL CONTINUE TO MONITOR.
[2020-03-31] MEDS: PIPERACILLIN /TAZOBACTAM 3.375 G in IV D5W 100 ML IV SCH ×3 (05:11→20:47)
--- NOTE | 2020-03-31 05:11 | NUR ---
MS RN NOTES PATIENT C/O 10/10 SCROTAL PAIN. ADMINISTERED PRN MORPHINE 2MG PER PATIENT'S REQUEST. VITAL SIGNS - BP: 147/83 HR: 77. WILL CONTINUE TO MONITOR
[2020-03-31] MEDS: BLOOD SUGAR DIAGNOSTIC 1 EACH STRIP IN SCH ×4 (07:04→21:16)
--- NOTE | 2020-03-31 07:29 | NUR ---
MS RN CLOSING NOTES PATIENT AWAKE AND SITTING ON CHAIR NEXT TO BEDSIDE. A/OX4. ON RA. NO S/S OF ACUTE RESPIRATORY DISTRESS; BREATHING IS EVEN AND UNLABORED. MIDLINE PRESENT ON RIGHT UPPER ARM, INTACT & PATENT, WITH ZOSYN RUNNING AT 25 ML/HR. YARBROUGH CATH PRESENT AND DRAINING WELL, EMPTIED 1500 ML. SAFETY MEASURES IN PLACE AND PATIENT'S NEEDS MET. BED LOCKED, SIDE RAILS X2, CALL LIGHT WITHIN REACH. WILL ENDORSE TO DAY SHIFT NURSE PLAN OF CARE.
[2020-03-31 07:31] LABS: CALCIUM, SERUM 8.1 mg/dL (8.5-10.1); CREATININE 2.3 mg/dL (0.6-1.3)
[2020-03-31 07:33] LABS: BASOPHILS # (AUTO) 0.1 /CMM (0.0-0.2); BASOPHILS % (AUTO) 1.2 % (0.0-2.0); EOSINOPHILS % (AUTO) 8.1 % (0.0-6.0); HEMATOCRIT 32 % (39-51); LYMPHOCYTES # (AUTO) 1.5 /CMM (0.8-4.8); MEAN CORPUSCULAR HGB CONC 32 g/dl (31.0-36.0); MEAN CORPUSCULAR VOLUME 87 fL (80-96); MONOCYTES # (AUTO) 0.8 /CMM (0.1-1.30); MONOCYTES % (AUTO) 10.3 % (2.0-12.0); NEUTROPHILS # (AUTO) 4.7 /CMM (1.8-8.9); NEUTROPHILS % (AUTO) 60.4 % (43.0-81.0); PLATELET COUNT (AUTO) 261 /CMM (150-450); RED BLOOD CELL COUNT(AUTO) 3.63 MIL/uL (4.5-6.0); WHITE BLOOD COUNT (AUTO) 7.8 K/uL (4.3-11.0)
--- NOTE | 2020-03-31 07:44 | NUR ---
m/s heat treater helper: md visit seen by dr. ugarte. pt for d'c planning.
--- NOTE | 2020-03-31 08:00 | NUR ---
MS RN OPENING NOTES RECEIVED PT AWAKE AND SITTING ON CHAIR NEXT TO BEDSIDE. A/OX4. ON RA. NO CARDIAC OR RESPIRATORY DISTRESS NOTED. NO SOB NOTED. SATURATING WELL ON RA. IV ACCESS NOTED ON EDI MIDLINE. INTACT AND PATENT AND FLUSHING WELL. NO S/S OF INFECTION OR INFILTRATION NOTED. YARBROUGH CATH PRESENT. INTACT AND PATENT AND DRAINING WELL WITH CLEAR YELLOW URINE. PT NOTED WITH AN ENLARGED PROSTATE. SAFETY MEASURES IN PLACE AND PATIENT'S NEEDS MET. BED LOCKED, AND IN LOW POSITION. SIDE RAILS X2, CALL LIGHT WITHIN REACH. NON SKID SOCKS ON. WILL CONT TO MONITOR.
[2020-03-31 08:23] VITALS: BP 133/69
[2020-03-31] MEDS: CALCIUM ACETATE 667 MG TABLET PO SCH ×3 (08:33→17:04)
[2020-03-31] MEDS: THYROID PO SCH (08:33)
[2020-03-31] MEDS: METOLAZONE 2.5 MG TABLET PO SCH (08:33)
[2020-03-31] MEDS: MUPIROCIN OINT 2% 22 GM TUBE TP SCH (08:33)
[2020-03-31] MEDS: ASPIRIN EC 81 MG TABLET.DR PO SCH (08:33)
[2020-03-31] MEDS: hydrALAZINE HCL 10 MG TABLET PO SCH ×3 (08:34→17:00)
[2020-03-31] MEDS: CARVEDILOL 6.25 MG TABLET PO SCH ×2 (08:34→17:00)
[2020-03-31] MEDS: CLOTRIMAZOLE 1% 15 GM TUBE TP SCH ×2 (08:35→17:05)
[2020-03-31] MEDS: RIVAROXABAN 10 MG TABLET PO SCH ×2 (08:35→17:04)
[2020-03-31] MEDS: AMMONIUM LACTATE 227 GM BOTTLE TP SCH (09:03)
[2020-03-31] MEDS: INSULIN REGULAR, HUMAN 100 UNIT/ML 3 ML VIAL SQ PRN ×3 (11:42→21:19)
--- NOTE | 2020-03-31 13:00 | NUR ---
REFUSED BP MEDS PT REFUSED BP MEDS. PER PT "I DONT NEED IT". EDUCATED PT REGARDING RISKS, CONSEQUENCES AND NEGATIVE OUTCOMES OF NONCOMPLIANCE WITH MEDS WELL RISKS AND BENEFITS OF BP MEDS TO CONTROL BP. PT STILL REFUSED. BP NOTED AT 126/82.
[2020-03-31 16:52] VITALS: BP 128/70
--- NOTE | 2020-03-31 17:14 | NUR ---
REFUSED BP MEDS PT REFUSED BP MEDS ONCE AGAIN. PT STILL SAYS "I DONT HAVE PROBLEMS WITH MY BP.". EDUCATED PT REGARDING RISKS, CONSEQUENCES AND NEGATIVE OUTCOMES OF NONCOMPLIANCE WITH MEDS WELL RISKS AND BENEFITS OF BP MEDS TO CONTROL BP. PT STILL REFUSED. BP NOTED AT 121/49.
--- NOTE | 2020-03-31 18:48 | NUR ---
MS RN CLOSING NOTES PT AWAKE AND SITTING ON CHAIR NEXT TO BEDSIDE. A/OX4. ON RA. NO CARDIAC OR RESPIRATORY DISTRESS NOTED. NO SOB NOTED. SATURATING WELL ON RA. IV ACCESS NOTED ON EDI MIDLINE. INTACT AND PATENT AND FLUSHING WELL. NO S/S OF INFECTION OR INFILTRATION NOTED. YARBROUGH CATH PRESENT. INTACT AND PATENT AND DRAINING WELL WITH CLEAR YELLOW URINE. PT NOTED WITH AN ENLARGED PROSTATE. MANAGED PTS PAIN THROUGHOUT THE SHIFT. NO CHANGES OF CONDITION NOTED DURING THIS SHIFT. PTS NEEDS WERE MET AND ATTENDED. PT WAS VERY THANKFUL ABOUT THE NURSING STAFF CARE THAT IS BEING PROVIDED TO HIM, HE STATES, "IM SO GRATEFUL FOR YOU NURSES HERE. YOU GUYS ARE TRUE HEROES. AND I APPRECIATE ALL THAT YOU DO." SAFETY MEASURES IN PLACE AND PATIENT'S NEEDS MET. BED LOCKED, AND IN LOW POSITION. SIDE RAILS X2, CALL LIGHT WITHIN REACH. NON SKID SOCKS ON. WILL CONT TO MONITOR.
--- NOTE | 2020-03-31 19:00 | NUR ---
recieved sitting in the chair at the bedside. alert and orientated x3 speech clear. assisted to the bathroom he uses a walker. gutierrez drainage clear yellow verbalizing his needs. enjoys conversation talks about his health and weight loss
[2020-03-31 20:00] VITALS: BP 149/97
[2020-03-31 20:18] VITALS: BP 149/97
[2020-03-31] MEDS: ONDANSETRON HCL/PF 4 MG/2 ML VIAL IVP PRN (20:57)
[2020-03-31] MEDS: HYDROMORPHONE 1 MG/1 ML DISP.SYRIN IV PRN (23:44)
[2020-04-01] MEDS: MORPHINE SULFATE INJ 2 MG/ML DISP.SYRIN IV PRN ×5 (03:55→22:57)
[2020-04-01] MEDS: PIPERACILLIN /TAZOBACTAM 3.375 G in IV D5W 100 ML IV SCH ×3 (04:36→20:04)
[2020-04-01] MEDS: BLOOD SUGAR DIAGNOSTIC 1 EACH STRIP IN SCH ×4 (06:05→21:36)
[2020-04-01] MEDS: INSULIN REGULAR, HUMAN 100 UNIT/ML 3 ML VIAL SQ PRN ×4 (06:09→21:39)
--- NOTE | 2020-04-01 07:34 | NUR ---
RN OPENING NOTE Patient is sitting in chair, A/O x4, showing no signs of acute distress or SOB, breathing is even and unlabored, stable on RA. Ricci catheter noted with clear urine output, patient is able to ambulate with walker. EDI midline noted is clean and patent. Bed is in lowest position, side rails x3 in upright position, call light is within reach, fall safety and aspiration precautions enforced. Will continue with plan of care.
[2020-04-01 07:54] LABS: BASOPHILS # (AUTO) 0.1 /CMM (0.0-0.2); BASOPHILS % (AUTO) 0.8 % (0.0-2.0); EOSINOPHILS % (AUTO) 6.4 % (0.0-6.0); HEMATOCRIT 32 % (39-51); HEMOGLOBIN 10.3 g/dL (13.5-17.5); LYMPHOCYTES # (AUTO) 1.8 /CMM (0.8-4.8); LYMPHOCYTES % (AUTO) 20.9 % (20.0-44.0); MEAN CORPUSCULAR HGB CONC 32 g/dl (31.0-36.0); MEAN CORPUSCULAR VOLUME 88 fL (80-96); MONOCYTES # (AUTO) 0.7 /CMM (0.1-1.30); NEUTROPHILS # (AUTO) 5.5 /CMM (1.8-8.9); NEUTROPHILS % (AUTO) 63.9 % (43.0-81.0); PLATELET COUNT (AUTO) 268 /CMM (150-450); RED BLOOD CELL COUNT(AUTO) 3.67 MIL/uL (4.5-6.0); WHITE BLOOD COUNT (AUTO) 8.6 K/uL (4.3-11.0)
[2020-04-01 08:00] VITALS: BP 121/50
[2020-04-01 08:23] LABS: CALCIUM, SERUM 8.6 mg/dL (8.5-10.1); CREATININE 2.8 mg/dL (0.6-1.3)
[2020-04-01] MEDS: RIVAROXABAN 10 MG TABLET PO SCH ×2 (08:25→16:22)
[2020-04-01] MEDS: ASPIRIN EC 81 MG TABLET.DR PO SCH (08:25)
[2020-04-01] MEDS: THYROID PO SCH (08:26)
[2020-04-01] MEDS: CALCIUM ACETATE 667 MG TABLET PO SCH ×3 (08:26→17:19)
[2020-04-01] MEDS: METOLAZONE 2.5 MG TABLET PO SCH (08:26)
[2020-04-01] MEDS: CLOTRIMAZOLE 1% 15 GM TUBE TP SCH ×2 (08:28→17:19)
[2020-04-01] MEDS: hydrALAZINE HCL 10 MG TABLET PO SCH ×3 (09:00→16:24)
[2020-04-01] MEDS: CARVEDILOL 6.25 MG TABLET PO SCH ×2 (09:00→16:24)
[2020-04-01] MEDS: ONDANSETRON HCL/PF 4 MG/2 ML VIAL IVP PRN (09:32)
[2020-04-01] MEDS: MUPIROCIN OINT 2% 22 GM TUBE TP SCH (09:37)
[2020-04-01] MEDS: AMMONIUM LACTATE 227 GM BOTTLE TP SCH (11:42)
--- NOTE | 2020-04-01 12:44 | NUR ---
RN NOTE EDI midline reddened and swollen. Removed line and Midline nurse inserted new midline in HUMERA #18g clean and flushing well.
[2020-04-01] MEDS ORDERED: GENTAMICIN 0.1% OINT 15 GM TUBE TP PRN (14:30)
[2020-04-01 16:00] VITALS: BP 133/54
--- NOTE | 2020-04-01 18:55 | NUR ---
RN CLOSING NOTE Patient is sitting in chair, A/O x4, showing no signs of acute distress or SOB, breathing is even and unlabored, stable on RA. Ricci catheter noted with clear urine output 700cc out, patient is able to ambulate with walker. HUMERA midline noted clean and intact s/l. Wound dressing changed this afternoon with MD. All patient needs met, all due medications given, patient kept clean and dry throughout shift. Bed is in lowest position, side rails x3 in upright position, call light is within reach, fall safety and aspiration precautions enforced. Will endorse to shift foreman
--- NOTE | 2020-04-01 19:15 | NUR ---
RN OPEN NOTES PATIENT IS SITTING ON HIS CHAIR WATCHING TV. A/O X4. ON RA, NO SOB/ ACUTE RESPIRATORY DISTRESS NOTED. AMBULATORY WITH WALKER. CALL LIGHT IS WITHIN REACH. WILL CONTINUE TO MONITOR.
[2020-04-01 20:00] VITALS: BP 134/65
[2020-04-01] MEDS: HYDROMORPHONE 1 MG/1 ML DISP.SYRIN IV PRN (20:12)
--- NOTE | 2020-04-01 22:57 | NUR ---
RN NOTES ADMINISTERED MORPHINE 2MG Q4H PER PATIENT'S REQUEST. PATIENT RATED PAIN A 10/10 ON FEET, SCROTUM AND RIGHT ARM WHERE MIDLINE WAS REMOVED. WILL CONTINUE TO MONITOR.
[2020-04-02] MEDS: MORPHINE SULFATE INJ 2 MG/ML DISP.SYRIN IV PRN ×5 (02:59→22:47)
--- NOTE | 2020-04-02 02:59 | NUR ---
RN NOTES ADMINISTERED MORPHINE 2MG Q4H PER PATIENT'S REQUEST. PATIENT RATED PAIN A 10/10 ON FEET AND RIGHT ARM WHERE MIDLINE WAS REMOVED. WILL CONTINUE TO MONITOR.
[2020-04-02] MEDS: PIPERACILLIN /TAZOBACTAM 3.375 G in IV D5W 100 ML IV SCH ×3 (04:45→20:10)
[2020-04-02] MEDS: HYDROMORPHONE 1 MG/1 ML DISP.SYRIN IV PRN (06:25)
--- NOTE | 2020-04-02 06:32 | NUR ---
RN CLOSE NOTES PATIENT IS SITTING IN CHAIR WATCHING TV. A/O X4. ON RA, NO SOB/ ACUTE RESPIRATORY DISTRESS NOTED. ALL DUE ANTIBIOTICS GIVEN. YARBROUGH CATHETER IN PLACE, URINE OUTPUT 1300 ML. MIDLINE IN LEFT UPPER ARM IS PATENT AND INTACT, ZOSYN IS STILL RUNNING @ 25 MLS/HR. BED IS IN LOWEST LOCKED POSITION WITH SIDE RAILS UP X2, SEMI FOWLERS. AMBULATORY WITH WALKER. CALL LIGHT IS WITHIN REACH. WILL ENDORSE TO AM NURSE.
[2020-04-02] MEDS: BLOOD SUGAR DIAGNOSTIC 1 EACH STRIP IN SCH ×4 (07:30→22:00)
--- NOTE | 2020-04-02 07:48 | NUR ---
RN OPENING NOTE Patient is sitting in chair, A/O x4, showing no signs of acute distress or SOB, breathing is even and unlabored, stable on RA. Ricci catheter noted with clear urine output, patient is able to ambulate with walker. HUMERA midline noted clean and intact s/l. call light is within reach, fall safety and aspiration precautions enforced. Will continue with plan of care.
[2020-04-02 08:00] VITALS: BP 133/69
[2020-04-02 08:22] LABS: ALBUMIN 2.3 g/dL (3.4-5.0); BILIRUBIN,TOTAL 0.3 mg/dL (0.2-1.0); MAGNESIUM 2.1 mg/dL (1.8-2.4); PHOSPHORUS 3.6 mg/dL (2.5-4.9); POTASSIUM 4.5 mmol/L (3.5-5.1); TOTAL PROTEIN, SERUM 7.5 g/dL (6.4-8.2)
[2020-04-02] MEDS: ASPIRIN EC 81 MG TABLET.DR PO SCH (08:34)
[2020-04-02] MEDS: CALCIUM ACETATE 667 MG TABLET PO SCH ×3 (08:34→16:37)
[2020-04-02] MEDS: RIVAROXABAN 10 MG TABLET PO SCH ×2 (08:40→16:37)
[2020-04-02 08:48] LABS: BASOPHILS # (AUTO) 0.1 /CMM (0.0-0.2); EOSINOPHILS % (AUTO) 6.8 % (0.0-6.0); HEMATOCRIT 29 % (39-51); HEMOGLOBIN 9.5 g/dL (13.5-17.5); LYMPHOCYTES # (AUTO) 1.6 /CMM (0.8-4.8); LYMPHOCYTES % (AUTO) 21.2 % (20.0-44.0); MEAN CORPUSCULAR HGB CONC 33 g/dl (31.0-36.0); MEAN CORPUSCULAR VOLUME 87 fL (80-96); MONOCYTES # (AUTO) 0.9 /CMM (0.1-1.30); MONOCYTES % (AUTO) 11.4 % (2.0-12.0); NEUTROPHILS # (AUTO) 4.6 /CMM (1.8-8.9); NEUTROPHILS % (AUTO) 59.6 % (43.0-81.0); PLATELET COUNT (AUTO) 191 /CMM (150-450); RED BLOOD CELL COUNT(AUTO) 3.32 MIL/uL (4.5-6.0); WHITE BLOOD COUNT (AUTO) 7.8 K/uL (4.3-11.0)
[2020-04-02] MEDS: hydrALAZINE HCL 10 MG TABLET PO SCH ×3 (09:00→16:56)
[2020-04-02] MEDS: CARVEDILOL 6.25 MG TABLET PO SCH ×2 (09:00→16:57)
[2020-04-02] MEDS: THYROID PO SCH (09:54)
[2020-04-02] MEDS: AMMONIUM LACTATE 227 GM BOTTLE TP SCH (09:55)
[2020-04-02] MEDS: MUPIROCIN OINT 2% 22 GM TUBE TP SCH (09:55)
[2020-04-02] MEDS: CLOTRIMAZOLE 1% 15 GM TUBE TP SCH ×2 (09:56→16:38)
[2020-04-02] MEDS: INSULIN REGULAR, HUMAN 100 UNIT/ML 3 ML VIAL SQ PRN ×3 (11:39→21:52)
[2020-04-02 12:00] VITALS: BP 125/68
--- NOTE | 2020-04-02 12:11 | NUR ---
RN NOTE Urine specimen sent to lab.
[2020-04-02 14:18] LABS: URINE TOTAL PROTEIN 165.2 mg/dL (0-11.9)
[2020-04-02 15:26] LABS: APPEARANCE,URINE CLEAR (CLEAR); BILIRUBIN,URINE NEGATIVE (NEGATIVE); BLOOD, URINE MODERATE Ery/uL (NEGATIVE); COLOR,URINE YELLOW (YELLOW); KETONES,URINE NEGATIVE (NEGATIVE); LEUKOCYTE ESTERASE ,URINE TRACE (NEGATIVE); NITRITE, URINE NEGATIVE (NEGATIVE); PROTEIN,URINE 100 mg/dl (NEGATIVE); UGLUCOSE NEGATIVE (NEGATIVE); UROBILINOGEN,URINE 0.2 EU/dL (0.2)
[2020-04-02 16:00] VITALS: BP 146/71
[2020-04-02 16:45] LABS: BACTERIA,URINE Few /HPF (None Seen); SQUAMOUS EPITHELIAL CELL,UR Few /HPF (None Seen); YEAST,URINE Few /HPF (None Seen)
[2020-04-02 16:46] LABS: EOSINOPHIL,URINE Moderate
--- NOTE | 2020-04-02 19:10 | NUR ---
RN OPENING NOTES Received patient A/O x4 awake, sitting on chair in the room. On RA. no SOB/respiratory distress noted. With complaint of pain 10/10 BLE, awaiting for PRN due Morphine per patient. Offered to patient alternative PRN medications but patient only want Morphine. On fall and aspiration precautions. Will continue to monitor accordingly.
[2020-04-02 20:00] VITALS: BP 136/71
[2020-04-03] MEDS: MORPHINE SULFATE INJ 2 MG/ML DISP.SYRIN IV PRN ×3 (01:41→07:54)
[2020-04-03] MEDS: PIPERACILLIN /TAZOBACTAM 3.375 G in IV D5W 100 ML IV SCH ×3 (04:42→20:36)
[2020-04-03] MEDS: ONDANSETRON HCL/PF 4 MG/2 ML VIAL IVP PRN (04:42)
[2020-04-03 07:27] LABS: BASOPHILS % (AUTO) 0.5 % (0.0-2.0); EOSINOPHILS % (AUTO) 7.4 % (0.0-6.0); HEMATOCRIT 32 % (39-51); HEMOGLOBIN 10.1 g/dL (13.5-17.5); LYMPHOCYTES % (AUTO) 24.5 % (20.0-44.0); MEAN CORPUSCULAR HGB CONC 32 g/dl (31.0-36.0); MEAN CORPUSCULAR VOLUME 87 fL (80-96); MONOCYTES # (AUTO) 0.6 /CMM (0.1-1.30); MONOCYTES % (AUTO) 7.7 % (2.0-12.0); NEUTROPHILS # (AUTO) 4.8 /CMM (1.8-8.9); NEUTROPHILS % (AUTO) 59.9 % (43.0-81.0); PLATELET COUNT (AUTO) 273 /CMM (150-450); RED BLOOD CELL COUNT(AUTO) 3.63 MIL/uL (4.5-6.0)
[2020-04-03] MEDS: BLOOD SUGAR DIAGNOSTIC 1 EACH STRIP IN SCH ×4 (07:28→21:43)
--- NOTE | 2020-04-03 07:29 | NUR ---
RN CLOSING NOTES Patient awake, walking around the room. Medicated for pain as ordered. Patient still asking for pain meds in less than 3hrs but reminded patient of the interval ordered, patient verbalized understanding, able to wait for the due meds. All nursing needs attended. Kept clean, dry and comfortable. On fall and aspiration precautions. Endorsed.
[2020-04-03 07:38] LABS: ALBUMIN 2.7 g/dL (3.4-5.0); BILIRUBIN,TOTAL 0.4 mg/dL (0.2-1.0); CALCIUM, SERUM 8.9 mg/dL (8.5-10.1); CREATININE 2.7 mg/dL (0.6-1.3); MAGNESIUM 2.4 mg/dL (1.8-2.4); PHOSPHORUS 3.7 mg/dL (2.5-4.9); POTASSIUM 4.7 mmol/L (3.5-5.1); TOTAL PROTEIN, SERUM 8.2 g/dL (6.4-8.2)
[2020-04-03] MEDS: ASPIRIN EC 81 MG TABLET.DR PO SCH (08:00)
[2020-04-03] MEDS: CALCIUM ACETATE 667 MG TABLET PO SCH ×3 (08:00→17:11)
[2020-04-03] MEDS: CLOTRIMAZOLE 1% 15 GM TUBE TP SCH ×2 (08:01→17:05)
[2020-04-03] MEDS: RIVAROXABAN 10 MG TABLET PO SCH ×2 (08:01→17:07)
[2020-04-03] MEDS: THYROID PO SCH (08:01)
[2020-04-03 08:02] VITALS: BP 137/69
[2020-04-03] MEDS: MUPIROCIN OINT 2% 22 GM TUBE TP SCH (08:02)
[2020-04-03] MEDS: AMMONIUM LACTATE 227 GM BOTTLE TP SCH (08:04)
[2020-04-03] MEDS: CARVEDILOL 6.25 MG TABLET PO SCH ×2 (08:08→17:08)
[2020-04-03] MEDS: hydrALAZINE HCL 10 MG TABLET PO SCH ×3 (08:08→17:00)
--- NOTE | 2020-04-03 08:55 | NUR ---
MS/RN OPENING NOTES Received patient sitting on the chair, A&O x4. Patient reports a 10/10 BLE pain. [place] was last given at 0442, waiting for Morphine PRN to be due. Offered other alternative PRN medications but patient insists on having Morphine instead. Breathing even and unlabored on RA. No respiratory or cardiac distress noted. IV access noted on midline in left upper arm, intact and patent with no s/s of infiltration noted, flushing well. Ricci catheter in place. Enlarged prostate noted. Sensation intact from all peripheral extremities. Patient is ambulating, but reminded him to call for help/use call light if he gets out of bed/chair. Fall precautions maintained. Will continue with current medical management.
[2020-04-03] MEDS: INSULIN REGULAR, HUMAN 100 UNIT/ML 3 ML VIAL SQ PRN ×3 (12:02→21:47)
[2020-04-03] MEDS: oxyCODONE/APAP (5/325 MG) 1 UDTAB TABLET PO PRN ×3 (13:13→19:17)
[2020-04-03 16:00] VITALS: BP 128/62
--- NOTE | 2020-04-03 18:15 | NUR ---
MS/RN CLOSING NOTES Patient is sitting on chair, A&O x 4. Patient rates 10/10 to 7/10 aching pain on the BLE, after taking new PRN medication at 1313, Percocet 5/325 mg, and states how that he feels a lot better from the pain endured before. VSS, afebrile, no SOB noted. No respiratory or cardiac distress noted. IV access noted on midline in left upper arm, intact and patent with no s/s of infiltration noted, flushing well. Ricci catheter in place. All needs are met and attended. Fall precautions maintained. Will continue with current medical management.
--- NOTE | 2020-04-03 19:13 | NUR ---
RN OPENING NOTES Received patient sitting on chair in the room watching tv. On RA, with complaint of BLE pain 8/10. With indwelling FC with clear yellow urine output noted. Administered due meds as ordered. Offered some snacks to patient per request. Discussed to theh patient the POC for the night, patient verbalized understanding. Will continue to monitor accordingly.
[2020-04-03 20:00] VITALS: BP 117/57
[2020-04-03 20:42] VITALS: BP 117/57
[2020-04-04] MEDS: oxyCODONE/APAP (5/325 MG) 1 UDTAB TABLET PO PRN ×4 (01:19→13:52)
[2020-04-04] MEDS: PIPERACILLIN /TAZOBACTAM 3.375 G in IV D5W 100 ML IV SCH ×2 (04:33→12:08)
--- NOTE | 2020-04-04 06:32 | NUR ---
RN CLOSING NOTES Patient awake sitting on chair in the room watching tv and using his cellphone. Medicated for pain, patient claimed minimally effective. All due meds given as ordered, no ASE noted. All nursing needs attended, no new unusualities noted. Patient ambulatory to bathroom with FWW, independently, per paitent he had 7x bowel movement, all soft, formed stool, not LBM. Kept pt clean, dry and comfortable. On fall and aspiration precautions. Endorsed.
[2020-04-04] MEDS: BLOOD SUGAR DIAGNOSTIC 1 EACH STRIP IN SCH ×2 (07:30→11:37)
--- NOTE | 2020-04-04 07:35 | NUR ---
MS RN NOTES RECEIVED PATIENT SLEEPING IN BED COMFORTABLY IN MODERATE HIGH BACK REST, EASY TO AWAKEN. A/OX4. STABLE ON RA. NO S/S OF ACUTE DISTRESS NOTED AT THIS TIME; BREATHING IS EVEN AND UNLABORED; IV ACCESS ON HUMERA MIDLINE, INTACT & PATENT, HEP LOCKED. NOTED WITH FC, PATENT AND DRAINING FREELY WITH CLEAR YELLOW URINE. SAFETY MEASURES IN PLACE. BED LOCKED IN LOWEST LOCKED POSITION, ALARM ON, SIDE RAILS X2, CALL LIGHT WITHIN REACH. WILL CONTINUE TO MONITOR.
[2020-04-04 07:59] VITALS: BP 154/70
[2020-04-04] MEDS: CALCIUM ACETATE 667 MG TABLET PO SCH ×2 (08:05→12:10)
[2020-04-04] MEDS: CARVEDILOL 6.25 MG TABLET PO SCH (08:06)
[2020-04-04] MEDS: ASPIRIN EC 81 MG TABLET.DR PO SCH (08:06)
[2020-04-04] MEDS: hydrALAZINE HCL 10 MG TABLET PO SCH ×2 (08:06→12:11)
[2020-04-04] MEDS: RIVAROXABAN 10 MG TABLET PO SCH (08:09)
[2020-04-04] MEDS: THYROID PO SCH (08:09)
[2020-04-04] MEDS: CLOTRIMAZOLE 1% 15 GM TUBE TP SCH (08:14)
[2020-04-04] MEDS: MUPIROCIN OINT 2% 22 GM TUBE TP SCH (08:15)
[2020-04-04] MEDS: AMMONIUM LACTATE 227 GM BOTTLE TP SCH (08:16)
[2020-04-04] MEDS: INSULIN REGULAR, HUMAN 100 UNIT/ML 3 ML VIAL SQ PRN ×2 (09:01→11:34)
[2020-04-04 11:56] LABS: BASOPHILS # (AUTO) 0.1 /CMM (0.0-0.2); BASOPHILS % (AUTO) 1.1 % (0.0-2.0); EOSINOPHILS % (AUTO) 10.6 % (0.0-6.0); HEMATOCRIT 32 % (39-51); LYMPHOCYTES # (AUTO) 1.7 /CMM (0.8-4.8); LYMPHOCYTES % (AUTO) 24.4 % (20.0-44.0); MEAN CORPUSCULAR HGB CONC 32 g/dl (31.0-36.0); MEAN CORPUSCULAR VOLUME 88 fL (80-96); MONOCYTES # (AUTO) 0.7 /CMM (0.1-1.30); MONOCYTES % (AUTO) 9.5 % (2.0-12.0); NEUTROPHILS # (AUTO) 3.9 /CMM (1.8-8.9); NEUTROPHILS % (AUTO) 54.4 % (43.0-81.0); PLATELET COUNT (AUTO) 257 /CMM (150-450); RED BLOOD CELL COUNT(AUTO) 3.61 MIL/uL (4.5-6.0); WHITE BLOOD COUNT (AUTO) 7.1 K/uL (4.3-11.0)
[2020-04-04 12:05] LABS: ALBUMIN 2.6 g/dL (3.4-5.0); BILIRUBIN,TOTAL 0.3 mg/dL (0.2-1.0); CALCIUM, SERUM 8.8 mg/dL (8.5-10.1); CREATININE 2.8 mg/dL (0.6-1.3); MAGNESIUM 2.3 mg/dL (1.8-2.4); PHOSPHORUS 3.8 mg/dL (2.5-4.9)
[2020-04-04] MEDS ORDERED: RIVA10TA PO ×2 (12:39)
[2020-04-04] MEDS ORDERED: OXYC1TAB8 PO (12:39)
[2020-04-04 16:00] VITALS: BP 157/83
--- NOTE | 2020-04-04 16:00 | NUR ---
ASSISTANT PURCHASING MANAGER NOTES PATIENT DISCHARGED IN STABLE CONDITION. A/O X4. ABLE TO MAKE NEEDS KNOWN. V/S TAKEN, STABLE AND RECORDED. PATIENT'S IV REMOVED AND APPLIED PRESSURE DRESSINGS. REFUSED SKIN ASSESSMENT AND PICTURES. NAME ARM BAND REMOVED. YARBROUGH CATHETER REMOVED, PATIENT VOIDED, ALL BELONGINGS CHECKED AND SIGNED. HEALTH TEACHINGS/DISCHARGED INSTRUCTIONS AND PRESCRIPTION MEDICATION GIVEN TO PATIENT. VERBALIZED UNDERSTANDING. PATIENT LEFT UNIT VIA GURNEY ACCOMPANIED TO THE LOBBY BY AMBULANCE STAFF WITH NO SIGNS OF DISTRESS NOTED. CHARGE NURSE AWARE OF DISCHARGED.
[2020-04-18] MEDS ORDERED: RIVAROXABAN 10 MG TABLET PO SCH (17:00)
== END 2020-04-04 16:20 | disposition home health service (06) | DRG 344 ==
LOC: ER 02:15 → TELE 05:41 → MED 09:08 → TELE 03-26 05:00 → MED 03-26 06:00
PROVIDERS: ATTEND Hospitalist
PROC: 05HY33Z Insertion of Infusion Device into Upper Vein, Percutaneous Approach (ICD-10-PCS; 2020-03-23)
PROC: 0JBQ0ZZ Excision of Right Foot Subcutaneous Tissue and Fascia, Open Approach (ICD-10-PCS; principal; 2020-03-25)
PROC: 0JBR0ZZ Excision of Left Foot Subcutaneous Tissue and Fascia, Open Approach (ICD-10-PCS; principal; 2020-03-25)
PROC: 05HY33Z Insertion of Infusion Device into Upper Vein, Percutaneous Approach (ICD-10-PCS; 2020-04-01)
DX: E11.621 Type 2 diabetes mellitus with foot ulcer (principal); M86.672 Other chronic osteomyelitis, left ankle and foot; M86.671 Other chronic osteomyelitis, right ankle and foot; N17.0 Acute kidney failure with tubular necrosis; I50.33 Acute on chronic diastolic (congestive) heart failure; E87.3 Alkalosis; R53.2 Functional quadriplegia; E11.22 Type 2 diabetes mellitus with diabetic chronic kidney disease; E66.01 Morbid (severe) obesity due to excess calories; N25.0 Renal osteodystrophy; I13.0 Hypertensive heart and chronic kidney disease with heart failure and stage 1 through stage 4 chronic kidney disease, or unspecified chronic kidney disease; E11.42 Type 2 diabetes mellitus with diabetic polyneuropathy; E87.1 Hypo-osmolality and hyponatremia; D63.8 Anemia in other chronic diseases classified elsewhere; N39.0 Urinary tract infection, site not specified; E03.9 Hypothyroidism, unspecified; Z79.01 Long term (current) use of anticoagulants; E87.5 Hyperkalemia; N18.9 Chronic kidney disease, unspecified; N50.89 Other specified disorders of the male genital organs; D72.829 Elevated white blood cell count, unspecified; B96.1 Klebsiella pneumoniae [K. pneumoniae] as the cause of diseases classified elsewhere; N45.2 Orchitis; I87.2 Venous insufficiency (chronic) (peripheral); E11.40 Type 2 diabetes mellitus with diabetic neuropathy, unspecified; E11.69 Type 2 diabetes mellitus with other specified complication; Z68.41 Body mass index [BMI] 40.0-44.9, adult; Z79.4 Long term (current) use of insulin; I82.811 Embolism and thrombosis of superficial veins of right lower extremity; E11.51 Type 2 diabetes mellitus with diabetic peripheral angiopathy without gangrene; L97.419 Non-pressure chronic ulcer of right heel and midfoot with unspecified severity; L97.429 Non-pressure chronic ulcer of left heel and midfoot with unspecified severity; B95.2 Enterococcus as the cause of diseases classified elsewhere; Z16.24 Resistance to multiple antibiotics; Z71.3 Dietary counseling and surveillance
CPT/HCPCS: 36415; 71045-TC; 73620-TC; 76870-TC; 80048-TC; 80053-TC; 80061-TC; 80076-TC; 81000-TC; 82550-TC; 82570-TC; 82962-TC; 83540-TC; 83735-TC; 83880; 83935-TC; 83970; 84100-TC; 84155; 84155-TC; 84165; 84300-TC; 84443-TC; 84484-TC; 85025-TC; 85652-TC; 85730-TC; 86140-TC; 87070-TC; 87081-TC; 87086-TC; 87186-TC; 93307-TC; 93970-TC; 97110-TC; 97116-TC; 97530-TC; 97535-TC; A4217; A6253; A6403; G0378; J0696; J1170; J1644; J1815; J1940; J2270; J2405; J2543; J3475; J3490; J7040; J7060; Q0163

== ENCOUNTER 2020-04-05 23:44 | Emergency (ER) | payer OTHER ==
[~2020-04-05] VITALS: Ht 182.9 cm; Wt 135.6 kg
[~2020-04-05 23:44] MED LIST changes: +ASPI-1420 PO; +CARV6.252 PO; +FERR325T23 PO; +FURO-144 PO; +HYDR-4075 PO; +OXYC1TAB8 PO; +RIVA10TA PO
[2020-04-05] MEDS ORDERED: OXYMETAZOLINE HCL NASAL SPRAY 30 ML BOTTLE NS ONE (23:59)
[2020-04-05] MEDS ORDERED: LIDOCAINE VISCOUS 2% UD 15 ML UDC ONE (23:59)
[2020-04-06] MEDS ORDERED: LIDOCAINE VISCOUS 2% UD 15 ML UDC MM ONE
[2020-04-06] MEDS ORDERED: PHENYLEPHRINE HCL NASAL SPRAY 15 ML BOTTLE NS ONE
--- NOTE | 2020-04-06 00:01 | NUR ---
PT AAOX4. BIBSELF C/O NOSE BLEED SINCE 3 HOURS AGO. PT STTATED HE TAKES BLOOD THINNERS. PALCED IN BED 2, ON MONITOR AND PULSE OX. VSS.
--- NOTE | 2020-04-06 00:23 | NUR ---
MD AT BEDSIDE Addendum: 04/06/20 at 0039 by EVICTOR FOR PACKING NOSE
--- NOTE | 2020-04-06 00:40 | NUR ---
NOSE BLEED STOPPED.
[2020-04-06] MEDS ORDERED: CEPHALEXIN MONOHYDRATE 500 MG CAPSULE PO ONE ×2 (00:57→01:00)
--- NOTE | 2020-04-06 01:09 | NUR ---
Patient discharged to home in stable condition. Written and verbal after care instructions given. Patient verbalizes understanding of instruction and RX. Pt picked up by family.
[2020-04-06 01:10] VITALS: BP 132/83
== END 2020-04-06 01:14 | disposition home or self-care (01) ==
LOC: ER 23:47
DX: R04.0 Epistaxis (principal); Z79.01 Long term (current) use of anticoagulants; I13.2 Hypertensive heart and chronic kidney disease with heart failure and with stage 5 chronic kidney disease, or end stage renal disease; E11.22 Type 2 diabetes mellitus with diabetic chronic kidney disease; N18.6 End stage renal disease; D63.1 Anemia in chronic kidney disease; I50.9 Heart failure, unspecified; Z99.2 Dependence on renal dialysis; Z88.5 Allergy status to narcotic agent; Z91.011 Allergy to milk products; Z60.2 Problems related to living alone; Z79.899 Other long term (current) drug therapy; Z79.82 Long term (current) use of aspirin

== ENCOUNTER 2020-04-10 18:50 | Emergency (ER) | payer OTHER ==
[~2020-04-10] VITALS: Ht 182.9 cm; Wt 135.6 kg
[~2020-04-10 18:50] MED LIST changes: -ASPI-1420 PO; -FURO-144 PO; -INSU100I26 SQ; -KETO5DRO83 OP; -PRED5DRO24 OP; -SODI15OR PO
[2020-04-10 18:58] VITALS: BP 152/83
[2020-04-10] MEDS ORDERED: oxyCODONE/APAP (5/325 MG) 1 UDTAB TABLET ONE (19:13)
--- NOTE | 2020-04-10 19:17 | NUR ---
pain medication provided.
--- NOTE | 2020-04-10 19:29 | NUR ---
Patient discharged to home in stable condition. Written and verbal after care instructions given. Patient verbalizes understanding of instruction.
[2020-04-10] MEDS ORDERED: oxyCODONE/APAP (5/325 MG) 1 UDTAB TABLET PO ONE (19:30)
== END 2020-04-10 19:29 | disposition home or self-care (01) ==
LOC: ER 18:55
DX: S40.021A Contusion of right upper arm, initial encounter (principal); J44.9 Chronic obstructive pulmonary disease, unspecified; E11.22 Type 2 diabetes mellitus with diabetic chronic kidney disease; I13.2 Hypertensive heart and chronic kidney disease with heart failure and with stage 5 chronic kidney disease, or end stage renal disease; I50.9 Heart failure, unspecified; N18.6 End stage renal disease; Z99.2 Dependence on renal dialysis; Z98.890 Other specified postprocedural states; Z91.011 Allergy to milk products; Z88.5 Allergy status to narcotic agent; Z60.2 Problems related to living alone; Z79.899 Other long term (current) drug therapy; Z76.0 Encounter for issue of repeat prescription; Z79.82 Long term (current) use of aspirin; X58.XXXA Exposure to other specified factors, initial encounter; Y93.89 Activity, other specified; Y92.89 Other specified places as the place of occurrence of the external cause; Y99.8 Other external cause status